=== PATIENT | female | born 1970 | race Caucasian/White ===

== ENCOUNTER 2020-01-04 13:05 | Emergency (ER) | payer BC, SELFPAY ==
[2020-01-04 13:06] VITALS: BP 132/96; PULSE 89; RESP 18; TEMP 36.8; O2SAT 97; BMI 27.3
[2020-01-04] MEDS: Diphth,Pertuss(Acell),Tet Vac 0.5 ML Vial IM (15:21)
--- NOTE | 2020-01-04 15:32 | ED.DCSUM_ITS ---
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 She reports just prior to coming emerge department she was helping move volleyball equipment and the pole caused a laceration to her right foot. She denies any pain. No paresthesias distally. She is unsure when her last tetanus shot was. Physical Examination: Vitals: Stable. Afebrile. General: Well-nourished and well-developed. Head: Normocephalic atraumatic. Neck: Supple, no lymphadenopathy. No JVD. Nontender. Cardiovascular: Regular rate and rhythm. No murmurs. Respiratory: No respiratory distress. Clear to auscultation bilaterally. Abdominal: Soft, nontender, nondistended, normal bowel sounds. No guarding, rebound, or peritoneal signs. Back: Nontender. Extremities: 4 cm laceration to the medial side of her right foot. It this is over the proximal portion of the first metatarsal. There is no soft tissue swelling. There is no tenderness to palpation. She is neuro vas intact distally, no edema. Skin: Normal color, no rash. Neurologic: Alert and oriented ?3. Cranial nerves II through XII are intact. Normal strength and sensation. Psych: Normal affect. Emergency Department Course and Treatment: Patient refused pain medications. She had her wound anesthetized and repaired. She tolerated this well. Her tetanus was updated. Treatment Plan: Patient will be discharged instructions follow-up Dr. foster in 10 to 14 days for suture removal. Return to the emergency department for any worsening symptoms. Disposition: To home in improved and stable condition. Impression: 1 1. Right foot laceration, 4 cm, repaired. Procedure note: Wound was cleansed with chlorhexidine soap. Anesthetized with 1% lidocaine without epinephrine. Copiously irrigated with normal saline. Wound was explored there is no foreign material present. It was closed with 5 simple interrupted 4- 0 ethilon sutures. The patient tolerated it well. This note was generated with [employer] dictation software. It may contain incorrect words, spelling, and punctuation that were not noted in review of the chart prior to signing ED Disposition - Plan for ED Patient: Disposition: Home or Assisted Living Instructions: ED Laceration Ext Sutr Stap Tape Referrals: Justina Foster DO [Primary Care Provider] - 10-14 Days suture removal
[2020-01-04 15:54] VITALS: BP 123/87; PULSE 89; RESP 18; O2SAT 99
== END 2020-01-04 15:55 | disposition home or self-care (01) ==
LOC: ED 14:51
PROVIDERS: Emergency Provider Emergency Medicine; PCP Internal Medicine
DX: S91.311A Laceration without foreign body, right foot, initial encounter (principal); W45.8XXA Other foreign body or object entering through skin, initial encounter; W21.89XA Striking against or struck by other sports equipment, initial encounter; Y93.9 Activity, unspecified; Y92.9 Unspecified place or not applicable; Y99.9 Unspecified external cause status; Z23 Encounter for immunization
CPT/HCPCS: 12002; 90471; 90715; 99283

== ENCOUNTER 2021-04-10 09:49 | Emergency (ER) | payer OTHER, SELFPAY ==
[2021-04-10 09:50] VITALS: BP 122/94; PULSE 78; RESP 18; O2SAT 100
[2021-04-10 09:51] VITALS: BP 136/93; PULSE 97; RESP 20; TEMP 36.7; O2SAT 100; BMI 29.0
--- NOTE | 2021-04-10 10:23 | EKG12_ITS ---
Test Reason : CHEST PAIN Blood Pressure : / mmHG Vent. Rate : 091 BPM Atrial Rate : 091 BPM P-R Int : 114 ms QRS Dur : 086 ms QT Int : 392 ms P-R-T Axes : 021 027 047 degrees QTc Int : 482 ms Normal sinus rhythm Nonspecific ST and T wave abnormality Prolonged QT Abnormal ECG Confirmed by CHRISSIE JONES, SEDA ([id number]), school photograph editor BEN WHITMORE ([id number]) on 04/11/2021 1:47:07 P M Referred By: ALEKSANDAR Confirmed By:KEELY DICKENS MD
--- NOTE | 2021-04-10 10:24 | EX.ED.DYSGE1 ---
HPI History of Present Illness Chief Complaint: Chest Pain Narrative Narrative: Patient presents with what she thinks is high blood pressure at home based on a home reading however she also has these episodes where she feels very anxious and tearful and has some chest discomfort at the time. She has no back pain or tearing sensation she has no pleuritic component. She has no DVT or PE risk factors. No calf pain or leg pain. No fevers chills cough or congestion. This has been happening over the past few days especially in the morning. She does not have a history of hypertension, she does not take any medications. PFSH PFS Medical History no medical history Home Medications paroxetine HCl [Paxil] 10 mg PO DAILY #30 tab 04/10/21 [Rx Last Taken Unknown] Allergy/AdvReac Type Severity Reaction Status Date / Time No Known Allergies Allergy Verified 04/10/21 09:55 Surgical History no surgical history Social History Smoking Status: Never smoker ROS ROS ED ROS Narrative Past medical history: None Medications: None Social history: Noncontributory, non-smoker, she tells me she is under stress with her job but she does not think it is too much out of the ordinary for her. Review of systems: All systems negative except as indicated General: No fever Eyes: No visual changes ENT: No upper airway congestion, normal voice Neck: No neck pain Cardiovascular: Chest discomfort Respiratory: No shortness of breath or cough Gastrointestinal: No abdominal pain, nausea vomiting or diarrhea Genitourinary: No dysuria Musculoskeletal: Denies myalgias no difficulty with ambulation Skin: No rash Neurological: No memory loss, confusion or any focal weakness Psych: Anxious and tearful, she does not want to hurt her self Hematologic: No easy bleeding or easy bruising EXAM Physical Exam Narrative Exam Narrative: Physical exam General: She is slightly tearful but appears in no significant distress otherwise Head: Normocephalic, Atraumatic Eyes: Conjunctiva not pale ENT: Moist mucous membranes Neck: Supple, Nontender, No lymphadenopathy Cardiovascular: Regular rate, Regular rhythm Respiratory: No distress, CTA bilaterally Abdomen: Soft, Nontender, Nondistended Back: Nontender, Normal Inspection. Negative for: CVA tenderness Extremities: Nontender, No edema Skin: Normal color, No rash Neurological: Alert, Normal Strength, Normal Sensation Psychological: Normal affect Const Vital Signs: 04/10/21 09:50 04/10/21 09:51 04/10/21 09:55 Temperature 98.0 F Temperature Source Temporal Pulse Rate 78 97 Respiratory Rate 18 20 H Respiratory Effort Short of Breath Blood Pressure 122/94 H 136/93 H Blood Pressure Mean 103 107 Pulse Ox 100 100 Oxygen Delivery Method Room Air 04/10/21 11:50 Temperature Temperature Source Pulse Rate 71 Respiratory Rate 12 Respiratory Effort Blood Pressure 117/83 H Blood Pressure Mean 94 Pulse Ox 97 Oxygen Delivery Method Room Air MDM MDM MDM Narrative Medical decision making narrative: Patient has a normal emergency department work-up. She appears well I did give her Ativan which improved her symptoms. She apparently has been feeling this for some time, now that I am talking to her . She does have an appointment with her PCP in 3 days but I believe it is reasonable to start her on Paxil since it does have anxiolytic properties also. Anything changes she is to return. Lab Data Labs: Laboratory Results - last 24 hr 04/10/21 04/10/21 10:05 10:05 WBC 8.1 RBC 4.56 Hgb 12.8 Hct 39.2 MCV 86.0 MCH 28.1 MCHC 32.7 RDW Std Deviation 41.0 RDW Coeff of Asmita 13.2 Plt Count 455 H MPV 10.2 Immature Gran % (Auto) 0.200 Neut % (Auto) 64.4 Lymph % (Auto) 29.8 Barbour % (Auto) 4.1 Eos % (Auto) 1.0 Baso % (Auto) 0.5 Absolute Neuts (auto) 5.2 Absolute Lymphs (auto) 2.41 Nucleated RBC % 0 Sodium 140 Potassium 3.8 Chloride 110 H Carbon Dioxide 23.0 Anion Gap 7 BUN 13 Creatinine 0.88 Estim Creat Clear Calc 78.01 Est GFR (MDRD) Af Amer 88 Est GFR (MDRD) Non-Af 73 BUN/Creatinine Ratio 14.8 Glucose 97 Calcium 9.1 Total Bilirubin 0.40 AST 28 ALT 26 Alkaline Phosphatase 88 Troponin I High Sens 3 Total Protein 7.9 Albumin 3.5 Globulin 4.4 H Albumin/Globulin Ratio 0.8 L TSH 1.17 EKG Initial EKG: Comments: Normal sinus rhythm with a rate of 91. Normal CA interval, slightly prolonged QTC at 482. Otherwise nonspecific ST changes throughout no acute changes. Interpreted by emergency doctor. Discharge Plan Triage Chief Complaint: Chest Pain ED Provider: Kyle Matta Dx/Rx/DC Orders Clinical Impression: Chest pain, Anxiety Instructions: ED Anxiety Reaction, ED Chest Pain, Noncardiac Prescriptions: New paroxetine HCl [Paxil] 10 mg tablet 10 mg PO DAILY Qty: 30 RF: 0 Primary Care Provider: Justina Hendrickson Referrals: Justina Hendrickson DO [Primary Care Provider] - 3-5 Days Disposition Disposition: Home, Self Care
[2021-04-10] MEDS: LORazepam 2 MG/ML Syringe 0.5 MG IV (10:41)
[2021-04-10 10:42] LABS: Absolute Lymphocyte Count 2.41 X10^3/uL (0.83-4.51); Absolute Neutrophil Count 5.2 X10^3/uL (2.0-7.7); Basophil# 0.04 X10^3/uL; Basophil% 0.5 % (0-1); Eosinophil# 0.08 X10^3/uL; Hematocrit 39.2 % (37-47); Hemoglobin 12.8 g/dL (12.0-15.0); Lymphocyte # 2.41 X10^3/ul (0.83-4.51); Lymphocyte % 29.8 % (19-41); Mean Corp Hgb Conc 32.7 g/dL (32-36); Mean Corpuscular Hgb 28.1 pg (27.0-32.0); Mean Platelet Vol. 10.2 fl (6.2-12.0); Monocyte# 0.33 X10^3/uL; Monocyte% 4.1 % (0-10); NRBC Flagged by Analyzer 0 % (0-5); Neutrophil # 5.21 X10^3/uL (2.7-7.7); Neutrophil % 64.4 % (47-70); Platelet Count 455 K/mm3 (150-450); RBC Distribution Width CV 13.2 % (11.6-14.6); Red Blood Count 4.56 M/mm3 (4.2-5.4); White Blood Count 8.1 K/mm3 (4.4-11.0)
[2021-04-10 11:09] LABS: ALB/GLOB Ratio 0.8 RATIO (0.9-2.4); AST(SGOT) 28 U/L (15-37); Alanine Aminotransfer ALT/SGPT 26 U/L (13-56); Albumin, Serum 3.5 g/dL (3.2-5.0); Alkaline Phosphatase 88 U/L (45-117); Anion Gap 7 (5-15); BUN 13 mg/dL (7-18); BUN/Creat Ratio 14.8 RATIO (10-20); Calcium,Total 9.1 mg/dL (8.5-10.1); Chloride 110 mmol/L (98-107); Creatinine, Serum 0.88 mg/dL (0.55-1.02); EST Glomerular Filtration Rate 73 mL/min (>60); Est Glom Filt Rate - Afr Amer 88 mL/min (>60); Estimated Creatinine Clearance 78.01 ml/min; Globulin 4.4 g/dL (2.2-4.2); Glucose 97 mg/dL (74-106); Potassium 3.8 mmol/L (3.5-5.1); Protein, Total 7.9 g/dL (6.4-8.2); Sodium Level 140 mmol/L (136-145); Thyroid Stim Hormone (TSH) 1.17 uIU/mL (0.358-3.74); Troponin-I HS 3 pg/mL (3.0-54.0)
[2021-04-10 11:50] VITALS: BP 117/83; PULSE 71; RESP 12; O2SAT 97
== END 2021-04-10 12:50 | disposition home or self-care (01) ==
PROVIDERS: Emergency Provider Emergency Medicine; PCP Internal Medicine
DX: R07.9 Chest pain, unspecified (principal); F41.9 Anxiety disorder, unspecified; R03.0 Elevated blood-pressure reading, without diagnosis of hypertension; Z79.899 Other long term (current) drug therapy
CPT/HCPCS: 80053; 84443; 84484; 85025; 93005; 96361; 96374; 99285; J7040; A4216

== ENCOUNTER → 2024-12-02 | Outpatient (CLI) | payer OTHER, SELFPAY ==
--- NOTE | 2024-12-02 10:56 | VDLE_ITS ---
Reason For Study Reason For Study: Left leg swelling RIGHT LEFT CFV is compressible, spontaneous, phasic, competent GSV is normal. and demonstrates normal augmentation. CFV is compressible, spontaneous, phasic, competent, Procedure and demonstrates normal augmentation. This is a venous duplex using B-mode, color flow and FV is compressible, spontaneous, phasic, competent spectral Doppler. and demonstrates normal augmentation. Exam performed in department. POP V is compressible, spontaneous, phasic, competent A preliminary report was called and/or faxed to and demonstrates normal augmentation. Fast. T/P Trunk is compressible. PTV is compressible. LT PerV is compressible. VL/Venous Duplex US, Unilateral Interpretation Summary Deep veins of the left lower extremity are patent and compressible segmentally. There is no evidence of left lower extremity deep vein thrombosis. Valvular competence appears intact within the p roximal deep venous system on the left . The left great saphenous vein appears patent and compressible segmentally. The right common femoral vein is patent and compressible . Ordering Physician: Justina Hendrickson Referring Physician: Justina Hendrickson Performed By: Chayo Ramirez RVT
--- OUTSIDE RECORDS SUMMARY | 2024-12-02 18:40 | XMS RPT_ITS | CCD ---
Author Organization [facility] Care Team Providers Care Certified Nurse Name Role Phone Fast, Justina A Unavailable Manchak, Bria Unavailable Unavailable Scarlet Smith Unavailable Unavailable Gate Person, System Unavailable Unavailable Danuta Bishop Unavailable Unavailable Fast DO, Justina A Unavailable VogtOra nassar Unavailable Manchak PREPARATOR, Bria Unavailable Unavailable Unavailable Unavailable Fast DO, Justina A Unavailable Fast DO, Justina A Attending Unavailable Fast DO, Justina A Consulting Unavailable Allergies Allergy Classification Reported Allergen(s) Allergy Type Date of Onset Reaction(s) Facility (4 sources) Animal Dander; Translations: [Animal Dander] allergy to substance [facility] Work Phone: Medications Completed/Discontinued Medications Medication Drug Class(es) Dates Sig (Normalized) Sig (Original) acetaminophen 250 mg / aspirin 250 mg / caffeine 65 mg oral tablet (4 sources) Platelet Aggregation Inhibitor, Nonsteroidal Anti-inflammatory Drug, Central Nervous System Stimulant, Methylxanthine EXCEDRIN EXTRA STRENGTH, [id number] (Oral Tablet) 2 tabs prn for 0 days Refills: 0 Ordered: 15-May-2009 Laurel Kohli Active amitriptyline hydrochloride 10 mg oral tablet (4 sources) Tricyclic Antidepressant Start: 04-19-2013 End: 04-19-2013 take 1-2 tablets by mouth once daily at bedtime AMITRIPTYLINE HCL, 10MG (Oral Tablet) 1-2 Tablet qhs / HS for 0 days Quantity: 60 {Tablet} Refills: 3 Ordered: 19-Apr-2013 Fast DO, Justina A Fast DO, Justina A Start : 19-Apr-2013 End : 19-Apr-2013 Discontinued amoxicillin 875 mg / clavulanate 125 mg oral tablet (4 sources) Penicillin-class Antibacterial Start: 06-17-2013 End: 06-27-2013 take 1 tablet by mouth twice daily AUGMENTIN, 875-125MG (Oral Tablet) 1 (one) Tablet bid for 10 days Quantity: 20 {Tablet} Refills: 0 Ordered: 17-Jun-2013 Hayde King DO Start : 17-Jun-2013 End : 27-Jun-2013 Inactive bifidobacterium infantis 4 mg oral capsule (4 sources) Start: 04-19-2013 End: 04-19-2013 take 1 capsule by mouth once daily ALIGN, 4MG (Oral Capsule) 1 Capsule daily for 0 days Quantity: 30 {Capsule} Refills: 0 Ordered: 19-Apr-2013 Fast DO, Justina A Fast DO, Justina A Start : 19-Apr-2013 End : 19-Apr-2013 Discontinued cyclobenzaprine hydrochloride 10 mg oral tablet (4 sources) Muscle Relaxant Start: 04-19-2013 End: 04-12-2021 take 1 tablet by mouth once daily at bedtime as needed Cyclobenzaprine HCl 10 MG Oral Tablet 1 Tablet qhs prn for 0 days Quantity: 30 {Tablet} Refills: 0 Ordered: 12-Apr-2021 Bria Melissa CMA Start : 19-Apr-2013 End : 12-Apr-2021 Inactive Comments: thirty Comment on above: thirty escitalopram 10 mg oral tablet (3 sources) Serotonin Reuptake Inhibitor Start: 08-28-2021 take 1 tablet by mouth once daily at bedtime Escitalopram Oxalate 10 MG Oral Tablet 1 (one) Tablet qd at hs for 0 days Quantity: 30 {Tablet} Refills: 4 Ordered: 28-Aug-2021 Fast DO, Justina A Fast DO, Justina A Start : 28-Aug-2021 Active Start: 06-07-2021 take 1 tablet by fabiana th once daily at bedtime Escitalopram Oxalate 10 MG Oral Tablet 1 (one) Tablet qd at hs for 0 days Quantity: 30 {Tablet} Refills: 3 Ordered: 07-Jun-2021 Fast DO, Justina A Fast DO, Justina A Start : 07-Jun-2021 Active ORTHO TRI-CYCLEN (28), 0.18/0.215/0.25MG-35 MCG (Oral Tablet) (4 sources) Progestin, Estrogen End: 06-17-2013 take 1 tablet by mouth once daily ORTHO TRI-CYCLEN (28), 0.18/0.215/0.25MG-35 MCG (Oral Tablet) 1 tab qd for 0 days Refills: 0 Ordered: 17-Jun-2013 Danuta Bishop LPN End : 17-Jun-2013 Inactive 12 hr fexofenadine hydrochloride 60 mg / pseudoephedrine hydrochloride 120 mg extended release oral tablet (4 sources) alpha-Adrenergic Agonist, Histamine-1 Receptor Antagonist Start: 12-18-2010 End: 10-06-2011 take 60-120 mg by mouth every twelve hours JAZ-D 12 HOUR, 60-120MG (Oral Tablet Extended Release 12 Hour) 1 Tablet ER 12HR q12 hr for 0 days Quantity: 20 {Tablet_ER_12HR} Refills: 0 Ordered: 18-Dec-2010 Start : 18-Dec-2010 End : 06-Oct-2011 Discontinued Comments: This order discontinued per [facility]. Comment on above: This order discontin ued per [facility]. LORazepam 0.5 mg oral tablet (3 sources) Benzodiazepine Start: 08-28-2021 take 1 tablet by mouth twice daily as needed LORazepam 0.5 MG Oral Tablet 1 (one) Tablet bid prn for 0 days Quantity: 25 {Tablet} Refills: 0 Ordered: 28-Aug-2021 Fast DO, Justina A Fast DO, Justina A Start : 28-Aug-2021 Active Start: 04-12-2021 take 1 tablet by fabiana th twice daily as needed LORazepam 0.5 MG Oral Tablet 1 (one) Tablet bid prn for 0 days Quantity: 25 {Tablet} Refills: 0 Ordered: 12-Apr-2021 Fast DO, Justina A Fast DO, Justina A Start : 12-Apr-2021 Active ofloxacin 3 mg/ml ophthalmic solution (4 sources) Quinolone Antimicrobial Start: 05-15-2009 End: 05-22-2009 OCUFLOX, 0.3% (Ophthalmic Solution) 2 (two) Solution q 6 hours for 7 days Refills: 0 Ordered: 15-May-2009 Fast DO, Justina A Fast DO, Justina A Start : 15-May-2009 End : 22-May-2009 Inactive Problems Active Problems Problem Classification Problem Date Documented Da te Episodic/Chronic Anxiety disorders (8 sources) Anxiety; Translations: [Anxiety] 04-17-2021 Chronic Comment on above: discussed routine ex ercise and time for self and side effeccts of meds not stop cold turkey and takes time to take effect Fever of unknown origin (8 sources) Fever with chills; Translations: [Fever chills] 05-15-2015 Episodic Headache; including migraine (16 sources) Headache; Translations: [Headache] Resolved: 08-13-2009 08-13-2009 Episodic Immunizations and screening for infectious disease (11 sources) Need for prophylactic vaccination and inoculation against influenza; Translations: [Needs influenza immunization] 04-12-2021 Episodic Malaise and fatigue (12 sources) Fatigue; Translations: [Fatigue] 06-17-2013 Episodic Neoplasms of unspecified nature or uncertain behavior (3 sources) Thrombocytosis Chronic Neoplasms of unspecified nature or uncertain behavior (7 sources) Neoplasm of uncertain behavior of skin; Translations: [Thrombocytosis] Resolved: 08-13-2009 05-07-2015 Episodic Other gastrointestinal disorders (12 sources) Diarrhea; Translations: [Diarrhea] Resolved: 04-19-2013 04-19-2013 Episodic Comment on above: worsening with eatin g out and then incontinent of stool no pain incontenant of stool Other nutritional; endocrine; and metabolic disorders (3 sources) Body mass index 25-29 - overweight; Translations: [BMI 28.0-28.9,adult] 04-12-2021 Episodic Other screening for suspected conditions (not mental disorders or infectious disease) (3 sources) Patient encounter status; Translations: [Encounter for screening mammogram for breast cancer (Renamed from Encounter for screening mammogram for malignant neoplasm of breast)] 04-12-2021 Episodic Other upper respiratory disease (8 sources) Allergic rhinitis due to other allergen Chronic Other upper respiratory disease (4 sources) Allergic rhinitis; Translations: [Allergic rhinitis due to other allergen] 06-17-2013 Chronic Other upper respiratory disease (4 sources) Pain in throat Episodic Other upper respiratory infections (20 sources) Acute sinusitis; Translations: [Sore throat symptom] Resolved: 04-19-2013 04-19-2013 Episodic Residual codes; unclassified (1 source) Needs influenza immunization; Translations: [Need for prophylactic vaccination and inoculation against influenza] 03-27-2015 Episodic Residual codes; unclassified (8 sources) Family history of diabetes mellitus Episodic Residual codes; unclassified (4 sources) FH: Diabetes mellitus; Translations: [Family history of diabetes mellitus] 07-21-2018 Episodic Residual codes; unclassified (2 sources) H/O: surgery; Translations: [Breast Mass; Local Excision] 06-17-2013 Episodic Residual codes; unclassified (3 sources) Non-smoker; Translations: [Nonsmoker] 04-12-2021 Episodic Spondylosis; intervertebral disc disorders; other back problems (8 sources) Neck pain; Translations: [Neck Pain] 06-17-2013 Episodic Syncope (12 sources) Syncope and collapse; Translations: [Vasovagal syncope] Resolved: 08-13-2009 05-30-2015 Episodic Comment on above: fluids support hose discussed ways to avoid Varicose veins of lower extremity (4 sources) Varicose veins of lower extremity; Translations: [Asymptomatic varicose veins of unspecified lower extremity] 06-04-2015 Episodic Past or Other Problems Problem Classification Problem Date Documented Date Episodic/Chronic Calculus of urinary tract (4 sources) Calcium renal calculus ; Translations: [Calcium kidney stone] Resolved: 04-19-2013 05-09-2015 Episodic Inflammation; infection of eye (except that caused by tuberculosis or sexually transmitteddisease) (4 sources) Serous conjunctivitis; Translations: [Serous conjunctivitis, unspecified laterality] Resolved: 08-13-2009 05-11-2015 Episodic Unclassified (4 sources) Acute Conjuctivitis (372.01) Unclassified (20 sources) Unclassified (4 sources) Deliveries (Parity); Translations: [Deliveries (Parity)] 06-17-2013 Comment on above: 1 Unclassified (12 sources) varicose veins Unclassified (4 sources) Pregnancies (); Translations: [Pregnancies ()] 06-17-2013 Comment on above: 1- twins Unclassified (4 sources) Lesion-Unknown behavior (238.2) Unclassified (3 sources) Nonsmoker Unclassified (3 sources) BMI 28.0-28.9,adult Unclassified (3 sources) Encounter for screening mammogram for breast cancer (Renamed from Encounter for screening mammogram for malignant neoplasm of breast) Results Test Name Value Interpretation Reference Range Facility 12 Lead EKGon 04-10-2021 12 Lead EKG [facility] [address] [place] [address] 12 Lead EKG 04/10/21 0958 MR#: [id number] Acct: [id number] Name: LAUREL ESQUIVEL Rep #: [id number] : 1970 50 From: Amari Cabral MD Attending Dr: Status: DEP ER Ordering Dr: Kyle Matta MD Date: 04/10/21 Location: ED Sex: F C Admitted: Test Reason : CHEST PAIN Blood Pressure : / mmHG Vent. Rate : 091 BPM Atrial Rate : 091 BPM P-R Int : 114 ms QRS Dur : 086 ms QT Int : 392 ms P-R-T Axes : 021 027 047 degrees QTc Int : 482 ms Normal sinus rhythm Nonspecific ST and T wave abnormality Prolonged QT Abnormal ECG Confirmed by CHRISSIE JONES, SEDA ([id number]), business editor BEN WHITMORE ([id number]) on 04/11/2021 1:47:07 PM Referred By: ES Confirmed By:KEELY CABRAL MD 04/11/21 1347 Date Amari Cabral MD CC: Dr. Justina Hendrickson DO; Dr. Kyle Matta MD Signed Normal [facility] CBC W/Diff, Automatedon 10- Absolute Lymph 2.41 X10 3/uL Normal 0.83-4.51 [facility] Comment on above: Performed By: #### L 100.0100, L501.4020, L501.9520, L500.4050 #### [facility] [address] [place], [address] Absolute Neut 5.2 X10 3/uL Normal 2.0-7.7 [facility] Comment on above: Performed By: #### L 100.0100, L501.4020, L501.9520, L500.4050 #### [facility] [address] [place], [address] Basophils/100 WBC (Bld) 0.5 % Normal 0-1 [facility] Comment on above: Performed By: #### L 100.0100, L501.4020, L501.9520, L500.4050 #### [facility] [address] [place], [address] Eosinophils/100 WBC (Bld) 1.0 % Normal 0-5 [facility] Comment on above: Performed By: #### L 100.0100, L501.4020, L501.9520, L500.4050 #### [facility] [address] [place], [address] Erythrocyte distribution width (RBC) [Ratio] 13.2 % Normal 11.6-14.6 [facility] Comment on above: Performed By: #### L 100.0100, L501.4020, L501.9520, L500.4050 #### [facility] [address] [place], [address] Hematocrit (Bld) [Volume fraction] 39.2 % Normal 37-47 [facility] Comment on above: Performed By: #### L 100.0100, L501.4020, L501.9520, L500.4050 #### [facility] [address] [place], [address] Hemoglobin (Bld) [Mass/Vol] 12.8 g/dL Normal 12.0-15.0 [facility] Comment on above: Performed By: #### L 100.0100, L501.4020, L501.9520, L500.4050 #### [facility] [address] [place], [address] IG% 0.200 Normal 0.0-0.9 [facility] Comment on above: Result Comment: IG% - Immature Granulocytes (promyelocytes, myelocytes and metamyelocytes) > 1% indicates that a LEFT SHIFT is Present. Performed By: #### L 100.0100, L501.4020, L501.9520, L500.4050 #### [facility] [address] [place], [address] Lymphocytes/100 WBC (Bld) 29.8 % Normal 19-41 [facility] Comment on above: Performed By: #### L 100.0100, L501.4020, L501.9520, L500.4050 #### [facility] [address] [place], [address] MCH (RBC) [Entitic mass] 28.1 pg Normal 27.0-32.0 [facility] Comment on above: Performed By: #### L 100.0100, L501.4020, L501.9520, L500.4050 #### [facility] [address] [place], [address] MCHC (RBC) [Mass/Vol] 32.7 g/dL Normal 32-36 [facility] Comment on above: Performed By: #### L 100.0100, L501.4020, L501.9520, L500.4050 #### [facility] [address] [place], [address] MCV (RBC) [Entitic vol] 86.0 fL Normal 81-99 [facility] Comment on above: Performed By: #### L 100.0100, L501.4020, L501.9520, L500.4050 #### [facility] [address] [place], [address] Monocytes/100 WBC (Bld) 4.1 % Normal 0-10 [facility] Comment on above: Performed By: #### L 100.0100, L501.4020, L501.9520, L500.4050 #### [facility] [address] [place], [address] Neutrophils/100 WBC (Bld) 64.4 % Normal 47-70 [facility] Comment on above: Performed By: #### L 100.0100, L501.4020, L501.9520, L500.4050 #### [facility] [address] [place], [address] Nucleated RBC (Bld) [#/Vol] 0 10*3/uL Normal 0-5 [facility] Comment on above: Performed By: #### L 100.0100, L501.4020, L501.9520, L500.4050 #### [facility] [address] [place], [address] Platelet mean volume (Bld) [Entitic vol] 10.2 fL Normal 6.2-12.0 [facility] Comment on above: Performed By: #### L 100.0100, L501.4020, L501.9520, L500.4050 #### [facility] [address] [place], [address] Platelets (Bld) [#/Vol] 455 10*3/uL High 150-450 [facility] Comment on above: Performed By: #### L 100.0100, L501.4020, L501.9520, L500.4050 #### [facility] [address] [place], [address] RBC (Bld) [#/Vol] 4.56 10*6/uL Normal 4.2-5.4 [facility] Comment on above: Performed By: #### L 100.0100, L501.4020, L501.9520, L500.4050 #### [facility] [address] [place], [address] RDW SD 41.0 fl Normal 35.1-43.9 [facility] Comment on above: Performed By: #### L 100.0100, L501.4020, L501.9520, L500.4050 #### [facility] [address] [place], [address] WBC (Bld) [#/Vol] 8.1 10*3/uL Normal 4.4-11.0 [facility] Comment on above: Performed By: #### L 100.0100, L501.4020, L501.9520, L500.4050 #### [facility] [address] [place], [address] Comprehensive Metabolic Prof ilon 04-10-2021 Albumin [Mass/Vol] 3.5 g/dL Normal 3.2-5.0 [facility] Comment on above: Performed By: #### L 100.0100, L501.4020, L501.9520, L500.4050 #### [facility] [address] [place], [address] Albumin/Globulin [Mass ratio] 0.8 {ratio} Low 0.9-2.4 [facility] Comment on above: Performed By: #### L 100.0100, L501.4020, L501.9520, L500.4050 #### [facility] [address] [place], [address] ALK P 88 U/L Normal 45-117 [facility] Comment on above: Performed By: #### L 100.0100, L501.4020, L501.9520, L500.4050 #### [facility] [address] [place], [address] ALT [Catalytic activity/Vol] 26 U/L Normal 13-56 [facility] Comment on above: Performed By: #### L 100.0100, L501.4020, L501.9520, L500.4050 #### [facility] [address] [place], [address] AST [Catalytic activity/Vol] 28 U/L Normal 15-37 [facility] Comment on above: Result Comment: Mode rate Hemolysis, Result may be falsely increased. Performed By: #### L 100.0100, L501.4020, L501.9520, L500.4050 #### [facility] [address] [place], [address] Bilirubin [Mass/Vol] 0.40 mg/dL Normal 0.20-1.00 [facility] Comment on above: Result Comment: For patients on eltrombopag therapy, use of Dimension [place] TBIL is not recommended. Performed By: #### L 100.0100, L501.4020, L501.9520, L500.4050 #### [facility] [address] [place], [address] BUN/CRE 14.8 RATIO Normal 10-20 [facility] Comment on above: Performed By: #### L 100.0100, L501.4020, L501.9520, L500.4050 #### [facility] [address] [place], [address] CA,Total 9.1 mg/dL Normal 8.5-10.1 [facility] Comment on above: Performed By: #### L 100.0100, L501.4020, L501.9520, L500.4050 #### [facility] [address] [place], [address] Chloride [Moles/Vol] 110 mmol/L High 98-107 [facility] Comment on above: Performed By: #### L 100.0100, L501.4020, L501.9520, L500.4050 #### [facility] [address] [place], [address] CO2 [Moles/Vol] 23.0 mmol/L Normal 21.0-32.0 [facility] Comment on above: Performed By: #### L 100.0100, L501.4020, L501.9520, L500.4050 #### [facility] [address] [place], [address] Creatinine [Mass/Vol] 0.88 mg/dL Normal 0.55-1.02 [facility] Comment on above: Result Comment: The validity of the calculated GFR GFRAA in patients over 70 years has not been determined. Clinical correlation is essential. Performed By: #### L 100.0100, L501.4020, L501.9520, L500.4050 #### [facility] [address] [place], [address] ECRCL 78.01 ml/min Normal [facility] Comment on above: Performed By: #### L 100.0100, L501.4020, L501.9520, L500.4050 #### [facility] [address] [place], [address] EST GFR - AA 88 mL/min Normal >60 [facility] Comment on above: Result Comment: Afri can Ghanaian GFR Calc Performed By: #### L 100.0100, L501.4020, L501.9520, L500.4050 #### [facility] [address] [place], [address] GAP 7 Normal 5-15 [facility] Comment on above: Performed By: #### L 100.0100, L501.4020, L501.9520, L500.4050 #### [facility] [address] [place], [address] GFR/1.73 sq M.predicted among non-blacks MDRD (S/P/Bld) [Vol rate/Area] 73 mL/min/{1.73_m2} Normal >60 [facility] Comment on above: Result Comment: Non- GFR Calc Performed By: #### L 100.0100, L501.4020, L501.9520, L500.4050 #### [facility] [address] [place], [address] Globulin (S) [Mass/Vol] 4.4 g/dL High 2.2-4.2 [facility] Comment on above: Performed By: #### L 100.0100, L501.4020, L501.9520, L500.4050 #### [facility] [address] [place], [address] Glucose [Mass/Vol] 97 mg/dL Normal 74-106 [facility] Comment on above: Result Comment: Renetta morgan note revised GLUCOSE reference range effective 2017. Performed By: #### L 100.0100, L501.4020, L501.9520, L500.4050 #### [facility] [address] [place], [address] Potassium [Moles/Vol] 3.8 mmol/L Normal 3.5-5.1 [facility] Comment on above: Result Comment: Mode rate Hemolysis, Result may be falsely increased. Performed By: #### L 100.0100, L501.4020, L501.9520, L500.4050 #### [facility] [address] [place], [address] Sodium [Moles/Vol] 140 mmol/L Normal 136-145 [facility] Comment on above: Performed By: #### L 100.0100, L501.4020, L501.9520, L500.4050 #### [facility] [address] [place], [address] T PROT 7.9 g/dL Normal 6.4-8.2 [facility] Comment on above: Performed By: #### L 100.0100, L501.4020, L501.9520, L500.4050 #### [facility] [address] [place], [address] Urea nitrogen [Mass/Vol] 13 mg/dL Normal 7-18 [facility] Comment on above: Performed By: #### L 100.0100, L501.4020, L501.9525, L500.4050 #### [facility] [address] [place], [address] Emergency Department Summary on 04-10-2021 Emergency Department Summary [facility] Medical Records Department [address] [place] [address] Emergency Department Summary 04/10/21 MR#: [id number] Acct: [id number] Name: LAUREL ESQUIVEL Rep #: [id number] : 1970 50 From: Kyle Matta MD PCP: Dr. Justina Hendrickson, DO Status:REG ER Location: ED HPI History of Present Illness Chief Complaint: Chest Pain Narrative Narrative: Patient presents with what she thinks is high blood pressure at home based on a home reading however she also has these episodes where she feels very anxious and tearful and has some chest discomfort at the time. She has no back pain or tearing sensation she has no pleuritic component. She has no DVT or PE risk factors. No calf pain or leg pain. No fevers chills cough or congestion. This has been happening over the past few days especially in the morning. She does not have a history of hypertension, she does not take any medications. PFSH PFSH Medical History no medical history Home Medications paroxetine HCl [Paxil] 10 mg PO DAILY #30 tab 04/10/21 [Rx Last Taken Unknown] Allergy/AdvReac Type Severity Reaction Status Date / Time No Known Allergies Allergy Verified 04/10/21 09:55 Surgical History no surgical history Social History Smoking Status: Never smoker ROS ROS ED ROS Narrative Past medical history: None Medications: None Social history: Noncontributory, non-smoker, she tells me she is under stress with her job but she does not think it is too much out of the ordinary for her. Review of systems: All systems negative except as indicated General: No fever Eyes: No visual changes ENT: No upper airway congestion, normal voice Neck: No neck pain Cardiovascular: Chest discomfort Respiratory: No shortness of breath or cough Gastrointestinal: No abdominal pain, nausea vomiting or diarrhea Genitourinary: No dysuria Musculoskeletal: Denies myalgias no difficulty with ambulation Skin: No rash Neurological: No memory loss, confusion or any focal weakness Psych: Anxious and tearful, she does not want to hurt her self Hematologic: No easy bleeding or easy bruising EXAM Physical Exam Narrative Exam Narrative: Physical exam General: She is slightly tearful but appears in no significant distress otherwise Head: Normocephalic, Atraumatic Eyes: Conjunctiva not pale ENT: Moist mucous membranes Neck: Supple, Nontender, No lymphadenopathy Cardiovascular: Regular rate, Regular rhythm Respiratory: No distress, CTA bilaterally Abdomen: Soft, Nontender, Nondistended Back: Nontender, Normal Inspection. Negative for: CVA tenderness Extremities: Nontender, No edema Skin: Normal color, No rash Neurological: Alert, Normal Strength, Normal Sensation Psychological: Normal affect Const Vital Signs: 04/10/21 09:50 04/10/21 09:51 04/10/21 09:55 Temperature 98.0 F Temperature Source Temporal Pulse Rate 78 97 Respiratory Rate 18 20 H Respiratory Effort Short of Breath Blood Pressure 122/94 H 136/93 H Blood Pressure Mean 103 107 Pulse Ox 100 100 Oxygen Delivery Method Room Air 04/10/21 11:50 Temperature Temperature Source Pulse Rate 71 Respiratory Rate 12 Respiratory Effort Blood Pressure 117/83 H Blood Pressure Mean 94 Pulse Ox 97 Oxygen Delivery Method Room Air MDM MDM MDM Narrative Medical decision making narrative: Patient has a normal emergency department work-up. She appears well I did give her Ativan which improved her symptoms. She apparently has been feeling this for some time, now that I am talking to her . She does have an appointment with her PCP in 3 days but I believe it is reasonable to start her on Paxil since it does have anxiolytic properties also. Anything changes she is to return. Lab Data Labs: Laboratory Results - last 24 hr 04/10/21 04/10/21 10:05 10:05 WBC 8.1 RBC 4.56 Hgb 12.8 Hct 39.2 MCV 86.0 MCH 28.1 MCHC 32.7 RDW Std Deviation 41.0 RDW Coeff of Asmita 13.2 Plt Count 455 H MPV 10.2 Immature Gran % (Auto) 0.200 Neut % (Auto) 64.4 Lymph % (Auto) 29.8 [place] % (Auto) 4.1 Eos % (Auto) 1.0 Baso % (Auto) 0.5 Absolute Neuts (auto) 5.2 Absolute Lymphs (auto) 2.41 Nucleated RBC % 0 Sodium 140 Potassium 3.8 Chloride 110 H Carbon Dioxide 23.0 Anion Gap 7 BUN 13 Creatinine 0.88 Estim Creat Clear Calc 78.01 Est GFR (MDRD) Af Amer 88 Est GFR (MDRD) Non-Af 73 BUN/Creatinine Ratio 14.8 Glucose 97 Calcium 9.1 Total Bilirubin 0.40 AST 28 ALT 26 Alkaline Phosphatase 88 Troponin I High Sens 3 Total Protein 7.9 Albumin 3.5 Globulin 4.4 H Albumin/Globulin Ratio 0.8 L TSH 1.17 (more content not included)... Normal [facility] L501.4020on 04-10-2021 TROPONIN-I HS 3 pg/mL Normal 3.0-54.0 [facility] Comment on above: Result Comment: Renetta morgan Note: New Test Units and Gender Specific Reference Ranges. For more information see Policy Stat Procedure [place] High Sensitivity Troponin (TNIH) and attachments. Performed By: #### L 100.0100, L501.4020, L501.9520, L500.4050 #### [facility] [address] [place], [place], [id number] Thyroid Stim Hormone (TSH)on 04-10-2021 TSH 1.17 uIU/mL Normal 0.358-3.74 [facility] Comment on above: Performed By: #### L 100.0100, L501.4020, L501.9520, L500.4050 #### [facility] [address] [place], [place], [address] CNOVon 08-01-2019 CNOV Office Visit ([facility] ) LAUREL ESQUIVEL ([id number]) 1970 F Date Time Provider Department 08/01/19 1:15 PM TYSON AZUL (WESLY) [facility] During your visit today, we recorded the following information about you: Temperature Pulse Respiration Blood pressure 97.1 degrees 81/minute 16/minute 112/78 Weight 86 kg Tyson Azul PA-C 08/01/2019 3:55 PM Signed Subjective HPI Patient presents with nasal congestion, hoarse voice over the past 4 days. She's not had a cough. No fever. She's had some sinus pressure as well. She has used Sudafed and NyQuil. Denies headaches or chills. She did not get a flu shot this season. No vomiting or diarrhea. No abdominal pain. Review of Systems Constitutional: Negative. HENT: Positive for congestion, sinus pain and sore throat. Negative for ear pain. Eyes: Negative. Respiratory: Negative for cough. Cardiovascular: Negative. Gastrointestinal: Negative. Genitourinary: Negative. Skin: Negative. All other systems reviewed and are negative. History reviewed. No pertinent past medical history. Current Outpatient Medications Medication Sig Dispense Refill - albuterol HFA (VENTOLIN HFA) 90 mcg/actuation inhaler Inhale 2 Puffs as instructed every 4 hours as needed for Wheezing/Shortness of Breath. (Patient not taking: Reported on 08/01/2019 ) 1 Inhaler 0 - codeine-guaiFENesin (ROBITUSSIN AC) 10-100 mg/5 mL syrup Take 5-10 mL by mouth four times daily as needed for Cough. May cause drowsiness. (Patient not taking: Reported on 08/01/2019) 120 mL 0 No current facility-administered medications for this visit. No past surgical history on file. No family history on file. Social History Tobacco Use - Smoking status: Never Smoker - Smokeless tobacco: Never Used Substance Use Topics - Alcohol use: Not on file - Drug use: Not on file BP 112/78 Pulse 81 Temp 36.2 ?C (97.1 ?F) (Tympanic) Resp 16 Wt 86 kg (189 lb 9.6 oz) SpO2 97% Objective Physical Exam Constitutional: She is oriented to person, place, and time and well-developed, well-nourished, and in no distress. HENT: Head: Normocephalic and atraumatic. Right Ear: Tympanic membrane, external ear and ear canal normal. Left Ear: Tympanic membrane, external ear and ear canal normal. Nose: Mucosal edema and rhinorrhea present. Mouth/Throat: Uvula is midline, oropharynx is clear and moist and mucous membranes are normal. Hoarse voice Neck: Normal range of motion. Neck supple. Cardiovascular: Normal rate, regular rhythm and normal heart sounds. Pulmonary/Chest: Effort normal and breath sounds normal. No respiratory distress. She has no wheezes. She has no rales. Neurological: She is alert and oriented to person, place, and time. Skin: Skin is warm and dry. No rash noted. Psychiatric: Affect and judgment normal. Nursing note and vitals reviewed. ASSESSMENT/PLAN: 1. Viral URI with cough - ICD9: 465.9, ICD10: J06.9, B97.89 - Discussed viral etiology and rationale for treatment. - Symptomatic treatment with prn analgesia - Supportive care with fluids and rest - Follow up in one week if symptoms persist or sooner if worsening of symptoms Tyson Azul PA-C Referring Provider: SELF [200] Allergies As of Date: 08/01/2019 (No Known Allergies) Date Reviewed: 08/01/2019 Reviewed by: Shala Hernadez LPN - Fully Assessed Reason for Visit: sinus congestion [Other] Cmt: x 4 days Primary Visit Diagnosis:Viral URI with cough [J06.9, B97.89] Prescriptions as of 08/01/2019 Sig: ALBUTEROL SULFATE HFA 90 MCG/* Inhale 2 Puffs as instructed * Patient not taking: Reported on 08/01/2019 CODEINE 10 MG-GUAIFENESIN 100* Take 5-10 mL by mouth four ti* Patient not taking: Reported on 08/01/2019 Problem List As Of Date: 08/01/2019 (None) Encounter Status:Closed by TYSON AZUL PA-C on 08/01/19 Normal [facility] PROGRESSon 08-01-2019 PROGRESS HNO ID: [id number] Author: Tyson Azul (Pa) Service: ? Author Type: Physician Coordinator Volunteer Services Type: Progress Notes Filed: 08/01/2019 3:55 PM Note Text: Subjective HPI Patient presents with nasal congestion, hoarse voice over the past 4 days. She's not had a cough. No fever. She's had some sinus pressure as well. She has used Sudafed and NyQuil. Denies headaches or chills. She did not get a flu shot this season. No vomiting or diarrhea. No abdominal pain. Review of Systems Constitutional: Negative. HENT: Positive for congestion, sinus pain and sore throat. Negative for ear pain. Eyes: Negative. Respiratory: Negative for cough. Cardiovascular: Negative. Gastrointestinal: Negative. Genitourinary: Negative. Skin: Negative. All other systems reviewed and are negative. History reviewed. No pertinent past medical history. Current Outpatient Medications Medication Sig Dispense Refill - albuterol HFA (VENTOLIN HFA) 90 mcg/actuation inhaler Inhale 2 Puffs as instructed every 4 hours as needed for Wheezing/Shortness of Breath. (Patient not taking: Reported on 08/01/2019 ) 1 Inhaler 0 - codeine-guaiFENesin (ROBITUSSIN AC) 10-100 mg/5 mL syrup Take 5-10 mL by mouth four times daily as needed for Cough. May cause drowsiness. (Patient not taking: Reported on 08/01/2019) 120 mL 0 No current facility-administered medications for this visit. No past surgical history on file. No family history on file. Social History Tobacco Use - Smoking status: Never Smoker - Smokeless tobacco: Never Used Substance Use Topics - Alcohol use: Not on file - Drug use: Not on file BP 112/78 Pulse 81 Temp 36.2 ?C (97.1 ?F) (Tympanic) Resp 16 Wt 86 kg (189 lb 9.6 oz) SpO2 97% Objective Physical Exam Constitutional: She is oriented to person, place, and time and well-developed, well-nourished, and in no distress. HENT: Head: Normocephalic and atraumatic. Right Ear: Tympanic membrane, external ear and ear canal normal. Left Ear: Tympanic membrane, external ear and ear canal normal. Nose: Mucosal edema and rhinorrhea present. Mouth/Throat: Uvula is midline, oropharynx is clear and moist and mucous membranes are normal. Hoarse voice Neck: Normal range of motion. Neck supple. Cardiovascular: Normal rate, regular rhythm and normal heart sounds. Pulmonary/Chest: Effort normal and breath sounds normal. No respiratory distress. She has no wheezes. She has no rales. Neurological: She is alert and oriented to person, place, and time. Skin: Skin is warm and dry. No rash noted. Psychiatric: Affect and judgment normal. Nursing note and vitals reviewed. ASSESSMENT/PLAN: 1. Viral URI with cough - ICD9: 465.9, ICD10: J06.9, B97.89 - Discussed viral etiology and rationale for treatment. - Symptomatic treatment with prn analgesia - Supportive care with fluids and rest - Follow up in one week if symptoms persist or sooner if worsening of symptoms Tyson Azul PA-C Normal [facility] REGINALDO CULTURE-OTHER ([id number])Ord ered By: Skidder Runner on 06-17-2013 Bacteria identified Respiratory culture Nom (Unsp spec) Final report Normal [facility] Work Phone: Comment on above: PATIENT NOT FASTINGP ERFORMED BY: [employer] [facility] [id number] Information: SRC:AMADEO [id number] Bacteria identified Respiratory culture Nom (Unsp spec) BETAGA Normal [facility] Work Phone: Comment on above: Beta hemolytic Strep tococcus, group AModerate growthPenicillin and ampicillin are drugs of choice for treatment ofbeta-hemolytic streptococcal infections. Susceptibility testing ofpenicillins and other beta-lactam agents approved by the FDA fortreatment of beta-hemolytic streptococcal infections need not beperformed routinely because nonsusceptible isolates are extremelyrare in any beta-hemolytic streptococcus and have not been reportedfor Streptococcus pyogenes (group A). (CLSI 2011)Routine respiratory floraHeavy growth PATIENT NOT FASTINGP ERFORMED BY: [facility] Vzhnrs2055 Morel Woodall Nicholson GroupAt[facility] [id number] Information: SRC:THRT I98804 Rapid Flu (78515 x 2)Ordered By: Danuta Bishop on 06-17-2013 FLUAV Ag IA Ql (Throat) Negative Normal [facility] Work Phone: FLUAV Ag IA Ql (Throat) Negative Normal [facility]; [facility] Work Phone: Rapid Strep Test, Office ([phone])Ordered By: Danuta Bishop on 06-17-2013 S. pyogenes Ag EIA Ql (Throat) Negative Normal [facility]; [facility] Work Phone: S. pyogenes Ag IA Ql (Unsp spec) Negative Normal [facility] Work Phone: C difficile Toxins A+B, EIAO rdered By: Skidder Runner on 10-14-2011 C. difficile toxin A+B IA Ql (St) Negative Normal [facility] Work Phone: Comment on above: PERFORMED BY: [facility] [id number] BY: [facility] [id number] H. pylori Stool Ag, EIAOrder ed By: Skidder Runner on 10-14-2011 H. pylori Ag IA Ql (St) Negative Normal [facility] Work Phone: Comment on above: PERFORMED BY: [facility] [id number] BY: [facility] [id number] Occult Blood, Fecal, IAOrder ed By: Skidder Runner on 10-14-2011 Lower GI hemoglobin IA Ql (St) Negative Normal [facility] Work Phone: Comment on above: PERFORMED BY: [facility] [id number] BY: [employer] [address] [id number] Ova + Parasite ExamOrdered B y: Skidder Runner on 10-14-2011 Ova and parasites identified Concentration Nom (St) NOCP Normal [facility] Work Phone: Comment on above: No ova, cysts, or pa rasites seen. PERFORMED BY: [facility] [id number] BY: [facility] [id number] Ova and parasites identified LM Nom (Unsp spec) Final report Normal [facility] Work Phone: Comment on above: These results were o btained using wet preparation(s) and trichromestained smear. This test does not include testing for Cryptosporidiumparvum, Cyclospora, or Microsporidia. PERFORMED BY: [facility] [id number] BY: [place] [id number] Stool CultureOrdered By: Shivani tem Gate Person on 10-14-2011 Bacteria identified Cx Nom (Unsp spec) NSS Normal [facility] Work Phone: Comment on above: No Salmonella or Barbara gella recovered. PERFORMED BY: [facility] hospital [id number] BY: [address] [id number] Information: SRC:ST Bacteria identified Cx Nom (Unsp spec) NCI Normal [facility] Work Phone: Comment on above: No Campylobacter spe cies isolated. PERFORMED BY: [facility]Critical [facility] hospital [id number] BY: [address] [id number] Information: SRC:ST Campylobacter sp identified Org specific cx Nom (St) Final report Normal [facility] Work Phone: Comment on above: PERFORMED BY: [employer] WellA[facility] SystemsCritical access hospital [id number] BY: [address] [id number] Information: SRC:ST E. coli shiga-like toxin IA Ql (St) Negative Normal [facility] Work Phone: Comment on above: PERFORMED BY: [facility] hospital [id number] BY: [address] [id number] Information: SRC:ST Salmonella and Shigella sp identified Org specific cx Nom (St) Final report Normal Comprehensi ve [facility] Medicine Work Phone: Comment on above: PERFORMED BY: [facility] [id number] BY: [facility] [id number] Information: SRC:ST White Blood Cells (WBC), Sto olOrdered By: Skidder Runner on 10-14-2011 WBC LM Ql (St) Final report Normal Comprehe nsive [facility] Medicine Work Phone: Comment on above: Reference Range: Non e Seen PERFORMED BY: [facility] [id number] BY: [employer] [id number] WBC LM Ql (St) NWBC Normal Comprehens [facility]lio [facility] Work Phone: Comment on above: No white blood cells seen. PERFORMED BY: [facility] [id number] BY: [employer] [id number] CBC With Differential/Platel etOrdered By: Skidder Runner on 10-06-2011 Basophils #/vol (Bld) 0.0 {x10E3/uL} Normal 0.0-0.2 [facility] Work Phone: Comment on above: PERFORMED BY: [facility] [id number] Basophils/100 WBC (Bld) 1 % Normal 0-3 [facility] Work Phone: Comment on above: PERFORMED BY: [facility] [id number] Eosinophils #/vol (Bld) 0.0 {x10E3/uL} Normal 0.0-0.4 [facility] Work Phone: Comment on above: PERFORMED BY: [facility] [id number] Eosinophils/100 WBC (Bld) 1 % Normal 0-7 [facility] Work Phone: Comment on above: PERFORMED BY: [employer] [facility] [id number] Erythrocyte distribution width Ratio (RBC) 13.1 % Normal 11.7-15.0 [facility] Work Phone: Comment on above: PERFORMED BY: [employer] [facility] [id number] Hematocrit Volume Fraction (Bld) 40.1 % Normal 34.0-44.0 [facility] Work Phone: Comment on above: PERFORMED BY: [employer] [facility] [id number] Hemoglobin mass conc (Bld) 13.3 g/dL Normal 11.5-15.0 [facility] Work Phone: Comment on above: PERFORMED BY: [employer] [facility] [id number] Immature granulocytes #/vol (Bld) 0.0 {x10E3/uL} Normal 0.0-0.1 [facility] Work Phone: Comment on above: PERFORMED BY: [employer] [facility] [id number] Immature granulocytes/100 WBC (Bld) 0 % Normal 0-2 [facility] Work Phone: Comment on above: PERFORMED BY: [employer] [facility] [id number] Lymphocytes #/vol (Bld) 2.5 {x10E3/uL} Normal 0.7-4.5 [facility] Work Phone: Comment on above: PERFORMED BY: [employer] [facility] [id number] Lymphocytes/100 WBC (Bld) 30 % Normal 14-46 [facility] Work Phone: Comment on above: PERFORMED BY: [employer] [facility] [id number] MCH Entitic mass (RBC) 28.2 pg Normal 27.0-34.0 [facility] Work Phone: Comment on above: PERFORMED BY: [employer] [facility] [facility] [id number] MCHC mass conc (RBC) 33.2 g/dL Normal 32.0-36.0 [facility] Internal Medicine Work Phone: Comment on above: PERFORMED BY: [employer] [facility] [id number] MCV Entitic volume (RBC) 85 fL Normal 80-98 [facility] Work Phone: Comment on above: PERFORMED BY: [employer] [facility] [id number] Monocytes #/vol (Bld) 0.4 {x10E3/uL} Normal 0.1-1.0 [facility] Work Phone: Comment on above: PERFORMED BY: [employer] [facility] [id number] Monocytes/100 WBC (Bld) 5 % Normal 4-13 [facility] Internal Medicine Work Phone: Comment on above: PERFORMED BY: [employer] [facility] [facility] [id number] Neutrophils #/vol (Bld) 5.3 {x10E3/uL} Normal 1.8-7.8 [facility] Work Phone: Comment on above: PERFORMED BY: [employer] [facility] [facility] [id number] Neutrophils/100 WBC (Bld) 63 % Normal 40-74 [facility] Work Phone: Comment on above: PERFORMED BY: [facility]Critical [facility] hospital [id number] Platelets #/vol (Bld) 302 {x10E3/uL} Normal 140-415 [facility] Work Phone: Comment on above: PERFORMED BY: [employer]uu On[employer]ine [facility] [id number] RBC #/vol (Bld) 4.72 {x10E6/uL} Normal 3.80-5.10 [facility] Work Phone: Comment on above: PERFORMED BY: [employer]6370 [facility] [id number] WBC #/vol (Bld) 8.2 {x10E3/uL} Normal 4.0-10.[address] [facility] Internal [facility] Work Phone: Comment on above: PERFORMED BY: [employer] [facility] [id number] Celiac Disease Comprehensive Ordered By: Skidder Runner on 10-06-2011 Endomysium IgA Ql (S) Negative Normal Com [facility] Internal Medicine Work Phone: Comment on above: PERFORMED BY: [employer] [facility] [id number] Gliadin peptide IgA Qn (S) 9 {units} Normal 0-19 [facility] Work Phone: Comment on above: Negative 0 - 19 Weak Positive 20 - 30 Moderate to Strong Positive >30 PERFORMED BY: [employer] [facility] [id number] Gliadin peptide IgG Qn (S) 11 {units} Normal 0-19 [facility] Work Phone: Comment on above: Negative 0 - 19 Weak Positive 20 - 30 Moderate to Strong Positive >30 PERFORMED BY: [employer] [facility] [id number] IgA mass conc 353 mg/dL Normal 70-400 Comprehensi [facility] Medicine Work Phone: Comment on above: PERFORMED BY: [employer] [facility] [id number] Tissue transglutaminase IgA Qn (S) <2 Normal 0-3 [facility] Work Phone: Comment on above: Negative 0 - 3 Weak Positive 4 - 10 Positive >10 . Tissue Transglutaminase (tTG) has been identified as the endomysial antigen. Studies have demonstr- ated that endomysial IgA antibodies have over 99% specificity for gluten sensitive enteropathy. PERFORMED BY: [employer] [place] [id number] Tissue transglutaminase IgG Qn (S) 2 U/mL Normal 0-5 [facility] Internal Medicine Work Phone: Comment on above: Negative 0 - 5 Weak Positive 6 - 9 Positive >9 PERFORMED BY: [facility] [id number] Comp. Metabolic Panel (14)Or dered By: Skidder Runner on 10-06-2011 Albumin mass conc 4.1 g/dL Normal 3.5-5.5 [facility] Internal Medicine Work Phone: Comment on above: PERFORMED BY: [facility] [id number] Albumin/Globulin mass ratio 1.4 {ratio} Normal 1.1-2.5 [facility] Internal Medicine Work Phone: Comment on above: PERFORMED BY: [employer] [facility] [id number] ALP enzyme act/vol 74 [iU]/L Normal 25-150 [facility] Internal Medicine Work Phone: Comment on above: PERFORMED BY: [facility] [id number] ALT enzyme act/vol 13 [iU]/L Normal 0-40 [facility] Work Phone: Comment on above: PERFORMED BY: [employer] [facility] [id number] AST enzyme act/vol 13 [iU]/L Normal 0-40 [facility] Work Phone: Comment on above: PERFORMED BY: [facility] [id number] Bilirubin mass conc 0.3 mg/dL Normal 0.0-1.[address] [facility] Internal Medicine Work Phone: Comment on above: PERFORMED BY: [facility] [id number] Calcium mass conc 9.5 mg/dL Normal 8.7-10.2 Compreh ensive Internal Medicine Work Phone: Comment on above: PERFORMED BY: [employer]6370 [facility] [id number] Chloride molar conc 105 mmol/L Normal 97-108 Compr ehensive Internal Medicine Work Phone: Comment on above: PERFORMED BY: [employer]70 [facility] [id number] CO2 molar conc 22 mmol/L Normal 20-32 Comprehens [facility] Work Phone: Comment on above: PERFORMED BY: [employer] [facility] [id number] Creatinine mass conc 0.73 mg/dL Normal 0.57-1.00 Comp rehensive Internal Medicine Work Phone: Comment on above: PERFORMED BY: [employer]70 [facility] [id number] GFR/1.73 sq M predicted among blacks MDRD vol rate/area (S/P/Bld) 119 mL/min/{1.73_m2} Normal Compreh ensive Internal Medicine Work Phone: Comment on above: Note: A persistent e GFR <60 mL/min/1.73 m2 (3 months or more) mayindicate chronic kidney disease. An eGFR >59 mL/min/1.73 m2 with anelevated urine protein also may indicate chronic kidney disease.Calculated using CKD-EPI formula. PERFORMED BY: [employer]aya [id number] [facility] PartnersAt[facility] [id number] GFR/1.73 sq M predicted among non-blacks CKD-EPI vol rate/area (S/P/Bld) 103 mL/min/1.73 Normal [facility] Work Phone: Comment on above: PERFORMED BY: Amaya [id number] [facility] [facility] [id number] Globulin mass conc (S) 3.0 g/dL Normal 1.5-4.5 Co m[facility] Work Phone: Comment on above: PERFORMED BY: Amaya [id number] Morel Woodall Nicholson GroupAt[facility] [id number] Glucose mass conc 90 mg/dL Normal 65-99 Compreh ensive [facility] Work Phone: Comment on above: PERFORMED BY: Amaya [id number] [facility] [facility] [id number] Potassium molar conc 4.5 mmol/L Normal 3.5-5.2 Comp rehensive Internal Medicine Work Phone: Comment on above: PERFORMED BY: Visto70 [facility] [facility]At[facility] [id number] Protein mass conc 7.1 g/dL Normal 6.0-8.5 Compreh ensive [facility] Medicine Work Phone: Comment on above: PERFORMED BY: Visto70 [facility] [id number] Sodium molar conc 137 mmol/L Normal 134-144 Compreh ensive [facility] Work Phone: Comment on above: PERFORMED BY: Visto70 [facility] [facility]At[facility] [id number] Urea nitrogen mass conc 10 mg/dL Normal 6-24 C omprehensive [facility] Work Phone: Comment on above: PERFORMED BY: Visto70 [facility] [facility] [id number] Urea nitrogen/Creatinine mass ratio 14 mg/mg Normal 9-23 [facility] Work Phone: Comment on above: PERFORMED BY: Visto70 MorelMolecular ImagingAt[facility] Health [facility] [id number] H pylori, IgM, IgG, IgA AbOr dered By: Skidder Runner on 10-06-2011 H. pylori IgG IA Qn (S) {index_val} Normal 0.0-0.8 [facility] Work Phone: Comment on above: Negative <0.9 Indete rminate 0.9 - 1.0 Positive >1.0 PERFORMED BY: Visto70 [facility] [id number] H pylori, IgM, IgG, IgA Ab <0.80 Normal 0.00-0.79 [facility] Work Phone: Comment on above: Negative <0.80 Equiv ocal 0.80 - 1.19 Positive >1.19 . Current studies suggest that H. pylori IgM testing should be performed concomitantly with H. pylori IgA and/or IgG tests to support a diagnosis of Helicobacter pylori infection. . For research use only, not for use in clinical diagnostic procedures. PERFORMED BY: BugBusterAt[facility] Health [facility] [id number] H pylori, IgM, IgG, IgA Ab <0.89 Normal 0.00-0.88 [facility] Medicine Work Phone: Comment on above: Negative <0.89 Equiv ocal 0.89 - 0.99 Positive >0.99 PERFORMED BY: [facility]usterAt[facility] [id number] Magnesium, SerumOrdered By: Skidder Runner on 10-06-2011 Magnesium mass conc 2.0 mg/dL Normal 1.6-2.6 Compr [facility] Internal Medicine Work Phone: Comment on above: PERFORMED BY: Bug[facility]usterAt[facility] [id number] TSHOrdered By: System Manage r on 10-06-2011 Thyrotropin Qn 0.961 {uIU/mL} Normal 0.450-4.[address] [facility] Internal Medicine Work Phone: Comment on above: PERFORMED BY: [facility] hospital [id number] Rapid Flu (55066 x 2)Ordered By: Bonnie Terry on 12-18-2010 FLUAV Ag IA Ql (Throat) Negative Normal [facility] Work Phone: FLUAV Ag IA Ql (Throat) Negative Normal [facility]; [facility] Work Phone: Viral Cul, Rapid Flu Rfx H1N 1Ordered By: Skidder Runner on 12-18-2010 Viral Cul, Rapid Flu Rfx H1N1 FLUABN Normal [facility] Work Phone: Comment on above: Negative:No Influenz a A or B detected. PATIENT NOT FASTINGP ERFORMED BY: [facility] HospitalCoLourdes Specialty HospitalAigtys8714 [facility] [id number] VIT D,25 13035Dajcarv By: Gary toscano Gate Person on 06-01-2010 VIT D,25 71901 32.9 ng/mL Normal 32.0-100.0 Comprehens [facility] Work Phone: Comment on above: Recent studies consi martin the lower limit of 32.0 ng/mL to leroy threshold for optimal health.Raul THORNE. J Nutr. 2004;135(2):317-22.Performed at: [facility] Lab[address] [id number] Director: Sanjuanita Lassiter MD, Phone: [phone] B12/FOLATESOrdered By: Jeimy rivera Gate Person on 05-30-2010 Cobalamin (Vitamin B12) mass conc 505 pg/mL Normal 254-1320 [facility] Work Phone: Comment on above: There is a low frequ ency possibility that high titers ofintrinsic blocking antibodies may not be completely inactivated during the reaction pretreatment stepof this testing method. If test results are in conflictwith the clinical diagnosis, patient should be testedfor the presence of intrinsic factor blocking antibodies. Folate mass conc 15.10 ng/mL Normal 3.1-17.5 Compreh ensive [facility] Medicine Work Phone: C-REACTIVE PROTOrdered By: Lillie aranam Gate Person on 05-30-2010 CRP mass conc 7.71 mg/L Abnormal 0.0-3.0 Comprehensi ve Internal Medicine Work Phone: Comment on above: C-Reactive Protein ( CRP) provides useful information for thediagnosis, therapy and monitoring of inflammatory processesand associated diseases. For the evaluation of Relative Riskfor Cardiovascular Disease, a High Sensitivity CRP (HSCRP)should be ordered. CBCDOrdered By: System Manag er on 05-30-2010 Basophils/100 WBC (Bld) 0.7 % Normal 0-1 C omprehens[facility] Work Phone: Eosinophils/100 WBC (Bld) 2.0 % Normal 0-5 [facility] Work Phone: Erythrocyte distribution width Ratio (RBC) 13.5 % Normal 11.6-14.6 [facility] Work Phone: Hematocrit Volume Fraction (Bld) 40.1 % Normal 37-47 [facility] Work Phone: Hemoglobin mass conc (Bld) 13.5 g/dL Normal 12.0-16.0 [facility] Work Phone: Lymphocytes/100 WBC (Bld) 33.3 % Normal 19-41 [facility] Work Phone: MCH Entitic mass (RBC) 29.8 pg Normal 27.0-32.0 Co mprehensive [facility] Work Phone: MCHC mass conc (RBC) 33.8 g/dL Normal 32-36 Comp rehensive Internal Medicine Work Phone: MCV Entitic volume (RBC) 88.4 fL Normal 81-99 [facility] Work Phone: Monocytes/100 WBC (Bld) 4.3 % Normal 0-10 [facility] o[facility]rehens[facility] Work Phone: Neutrophils #/vol (Bld) 4.7 3/uL Normal 2.0-7.7 [facility] Work Phone: Neutrophils/100 WBC (Bld) 59.7 % Normal 47-70 [facility] Internal Medicine Work Phone: Platelet mean volume Entitic volume (Bld) 7.4 fL Normal 6.5-12.0 Comprehensi ve Internal Medicine Work Phone: Platelets #/vol (Bld) 373 10*3/uL Normal 150-450 Co mprehensive [facility] Work Phone: RBC #/vol (Bld) 4.54 {M/mm3} Normal 4.2-5.4 Compreh ensive [facility] Medicine Work Phone: WBC #/vol (Bld) 7.9 10*3/uL Normal 4.4-11.0 Comprehe nsive Internal Medicine Work Phone: COMP METABOLICOrdered By: Sy stem Gate Person on 05-30-2010 Albumin mass conc 3.8 g/dL Normal 3.4-5.0 [facility] ensive Internal Medicine Work Phone: Albumin/Globulin mass ratio 1.0 {RATIO} Normal 0.9-2.4 [facility] Internal Medicine Work Phone: ALP enzyme act/vol 63 U/L Normal 50-136 [facility] Internal Medicine Work Phone: ALT enzyme act/vol 18 U/L Normal 12-[address] [facility] Internal [facility] Work Phone: Anion gap molar conc 10 mmol/L Normal 5-15 [facility] Work Phone: AST enzyme act/vol 10 U/L Abnormal 15-37 [facility] Internal Medicine Work Phone: Bilirubin mass conc 0.40 mg/dL Normal 0.00-1.00 Compr [facility] Internal Medicine Work Phone: Calcium mass conc 9.2 mg/dL Normal 8.5-10.1 Compreh [facility] Work Phone: Chloride molar conc 104 mmol/L Normal 98-[address] [facility] Internal Medicine Work Phone: CO2 molar conc 27.0 mmol/L Normal 21.0-32.0 Comprehva [facility] Internal Medicine Work Phone: Creatinine mass conc 1.0 mg/dL Normal 0.6-1.0 [facility] Internal Medicine Work Phone: GFR/1.73 sq M predicted among blacks MDRD vol rate/area (S/P/Bld) 80 mL/min/{1.73_m2} Normal Comprehe ive Internal Medicine Work Phone: GFR/1.73 sq M.predicted MDRD vol rate/area 66 mL/min/{1.73_m2} Normal Comprehen [facility] Internal Medicine Work Phone: Globulin mass conc (S) 3.7 g/dL Normal 2.7-4.2 [facility] Work Phone: Glucose mass conc 76 mg/dL Normal 70-110 Compreh [facility] Work Phone: Potassium molar conc 4.8 mmol/L Normal 3.5-5.1 Comp rehensive Internal Medicine Work Phone: Protein mass conc 7.5 g/dL Normal 6.4-8.2 Compreh ensive Internal Medicine Work Phone: Sodium molar conc 141 mmol/L Normal 136-145 Compreh ensive Internal Medicine Work Phone: Urea nitrogen mass conc 16 mg/dL Normal 7-18 C omprehensive [facility] Work Phone: Urea nitrogen/Creatinine mass ratio 16.0 {RATIO} Normal 10-20 [facility] Work Phone: ESROrdered By: Kaufmann Mercantile on 05-30-2010 ESR Velocity (Bld) 17 mm/h Normal 0-20 Compre hensive Internal Medicine Work Phone: MONOTESTOrdered By: System Autobase anager on 05-30-2010 Monocytes #/vol (Bld) SeeNote Normal Com prehensive Internal Medicine Work Phone: Comment on above: Result: Negative TSHOrdered By: Kaufmann Mercantile on 05-30-2010 Thyrotropin Qn 0.49 {uIU/mL} Normal 0.358-3.74 Compreh ensive Internal Medicine Work Phone: Urinalysis, Office ([id number])Or dered By: Maliha Mcguire on 05-30-2010 Bilirubin Ql (U) Negative Normal Comprehe nsive Internal Medicine Work Phone: Comment on above: on menses Bilirubin Ql (U) Negative Normal Comprehe nsive Internal Medicine; [facility] Work Phone: Comment on above: on menses Glucose Test strip (U) [Mass/Vol] Negative Normal [facility]; [facility] Work Phone: Comment on above: on menses Glucose Test strip mass conc (U) Negative Normal [facility] Work Phone: Comment on above: on menses Hemoglobin Ql (U) Hemolyzed Large Normal Co mprehensive [facility] Work Phone: Comment on above: on menses Ketones Ql (U) Negative Normal Comprehens [facility] Work Phone: Comment on above: on menses Ketones Ql (U) Negative Normal Comprehens [facility]; [facility] Work Phone: Comment on above: on menses Leukocyte esterase Test strip Ql (U) Negative Normal [facility] Work Phone: Comment on above: on menses Leukocyte esterase Test strip Ql (U) Negative Normal [facility]; [facility] Work Phone: Comment on above: on menses Nitrite Ql (U) Negative Normal Comprehens [facility] Work Phone: Comment on above: on menses Nitrite Ql (U) Negative Normal Comprehens [facility]; [facility] Work Phone: Comment on above: on menses pH (U) 6.0 [pH] Normal [facility] Work Phone: Comment on above: on menses Protein Ql (U) Negative Normal Comprehens [facility] Work Phone: Comment on above: on menses Protein Ql (U) Negative Normal Comprehens [facility]; [facility] Work Phone: Comment on above: on menses Specific gravity Relative Density (U) 1.025 1 Normal Comprehensi ve Internal Medicine Work Phone: Comment on above: on menses Urobilinogen mass/time (24H U) Normal Normal [facility] Work Phone: Comment on above: on menses Urine Test, Office ([id number])Ordered By: Maliha Mcguire on 05-30-2010 Beta HCG ( test) Ql (U) Negative Normal [facility]; [facility] Work Phone: HCG.beta subunit ( test) Ql (U) Negative Normal Comprehe nsive Internal Medicine Work Phone: BRAIN/HEAD W/WO CONTRASTOrde red By: Skidder Runner on 05-06-2008 BRAIN/HEAD W/WO CONTRAST See Note Normal [facility] Work Phone: Comment on above: Exam Number: [id number] CT SCAN OF THE BRAIN WITHOUT/WITH INTRAVENOUS CONTRAST. REASON FOR EXAMINATIONHeadaches. TECHNIQUEHelical CT acquisition of the brain was performed after theintravenous administration of 100 cc of low-osmolar contrast. Imagesare formatted in the axial projection. FINDINGSThere is no intracranial hemorrhage, mass effect, or midline shift. No CT scan evidence for acute cerebral infarction. There is no focalarea of abnormal contrast enhancement. No abnormal intra orextra-axial fluid collection is demonstrated. There is no depressedskull fracture. Incidental note is made of choroid plexus and pinealgland calcification. IMPRESSIONNo acute intracranial process is demonstrated. Reported By: YOBANY RUELAS MD Vital Signs Date Time Vital Sign Value Performing Clinician Facility 04-12-2021 09:040 Body height 172.72 cm [facility]; [facility] Work Phone: 04-12-2021 09:21-0400 Body mass index (BMI) [Ratio] 28.86 kg/m2 [facility]; [facility] Work Phone: 04-12-2021 [id number]:[id number] Body surface area Derived from formula 2 m2 [facility]; [facility] Work Phone: 04-12-2021 [id number] Body temperature 97.3 [degF] [facility]; [facility] Work Phone: Comment on above: Method: Thermal Scan 04-12-2021 09:21-0400 Body weight 86.09 kg [facility]; [facility] Work Phone: 04-12-2021 09:21-0400 Diastolic blood pressure 82 mm[Hg] [facility]; [facility] Work Phone: Comment on above: Patient Position: Sitting; Cuff Location : Left Arm; Cuff Size: Standard 04-12-2021 09:21-0400 Heart rate 81 /min [facility]; [facility] Work Phone: Comment on above: Pattern: Regular 04-12-2021 09:21-0400 Respiratory rate 16 /min Bria Melissa [facility]; [facility] Work Phone: Comment on above: Pattern: Unlabored 04-12-2021 09:21-0400 Systolic blood pressure 130 mm[Hg] Bria Melissa CMA [facility]; [facility] Work Phone: Comment on above: Patient Position: Sitting; Cuff Location : Left Arm; Cuff Size: Standard 06-17-2013 08:04-0500 BMI (Body Mass Index) 24.6 kg/m2 Danuta Questel CRABBER Comprehen sive Internal Medicine Work Phone: 06-17-2013 08:04-0500 Body Temperature 98.2 [degF] Danuta Questel CRABBER [facility] Work Phone: 06-17-2013 08:04-0500 Body weight 73.39 kg Danuta Questel CRABBER [facility]; [facility] Work Phone: 06-17-2013 08:04-0500 BP Diastolic 68 mm[Hg] Danuta Questel CRABBER [facility] Work Phone: Comment on above: Patient Position: Sitting; Cuff Location : Left Arm; Cuff Size: Standard 06-17-2013 08:04-0500 BP Systolic 108 mm[Hg] Danuta Questel CRABBER [facility] Work Phone: Comment on above: Patient Position: Sitting; Cuff Location : Left Arm; Cuff Size: Standard 06-17-2013 08:04-0500 BSA (Body Surface Area) 1.87 m2 Danuta Questel CRABBER [facility] Work Phone: 06-17-2013 08:04-0500 Height 172.72 cm Danuta Questel CRABBER [facility] Work Phone: 06-17-2013 08:04-0500 Pulse (Heart Rate) 100 /min Danuta Questel CRABBER Comprehensiv e Internal Medicine Work Phone: Comment on above: Pattern: Regular 06-17-2013 08:04-0500 Respiratory Rate 18 /min Danuta Taurusdavid REED [facility] Work Phone: Comment on above: Pattern: Unlabored 06-17-2013 08:04-0500 Weight 73.39 kg Justina Hendrickson [facility] Internal Medicine Work Phone: 04-19-2013 08:45-0400 BMI (Body Mass Index) 24.94 kg/m2 Laurel Kohli Comprehen sive Internal Medicine Work Phone: 04-19-2013 08:45-0400 Body Temperature 98.4 [degF] Laurel Kohli [facility] Work Phone: 04-19-2013 08:45-0400 Body weight 74.39 kg Laurel Kohli [facility]; [facility] Work Phone: 04-19-2013 08:45-0400 BP Diastolic 80 mm[Hg] Laurel Kohli [facility] Medicine Work Phone: Comment on above: Patient Position: Sitting; Cuff Location : Left Arm; Cuff Size: Standard 04-19-2013 08:45-0400 BP Systolic 106 mm[Hg] Laurel Kohli [facility] Internal Medicine Work Phone: Comment on above: Patient Position: Sitting; Cuff Location : Left Arm; Cuff Size: Standard 04-19-2013 08:45-0400 BSA (Body Surface Area) 1.88 m2 Laurel Kohli [facility] Medicine Work Phone: 04-19-2013 08:45-0400 Height 172.72 cm Laurel Kohli [facility] Work Phone: 04-19-2013 08:45-0400 Pulse (Heart Rate) 88 /min Laurel Kohli Comprehensiv e Internal Medicine Work Phone: Comment on above: Pattern: Regular 04-19-2013 08:45-0400 Respiratory Rate 16 /min Laurel Kohli [facility] Work Phone: Comment on above: Pattern: Unlabored 04-19-2013 08:45-0400 Weight 74.39 kg Justina Hendrickson [facility] Work Phone: 10-20-2011 09:55-0400 BMI (Body Mass Index) 25.85 kg/m2 Maliha Mcguire RN [facility] Work Phone: 10-20-2011 09:55-0400 Body Temperature 98.3 [degF] Maliha Mcguire RN [facility] Work Phone: Comment on above: Method: Oral 10-20-2011 09:55-0400 Body weight 77.11 kg Maliha Mcguire RN [facility]; [facility] Work Phone: 10-20-2011 09:55-0400 BP Diastolic 70 mm[Hg] Maliha Mcguire RN [facility] Work Phone: Comment on above: Patient Position: Sitting; Cuff Location : Left Arm; Cuff Size: Large 10-20-2011 09:55-0400 BP Systolic 110 mm[Hg] Maliha Mcguire RN [facility] Work Phone: Comment on above: Patient Position: Sitting; Cuff Location : Left Arm; Cuff Size: Large 10-20-2011 09:55-0400 BSA (Body Surface Area) 1.91 m2 Maliha Mcguire RN [facility] Work Phone: 10-20-2011 09:55-0400 Height 172.72 cm Maliha Mcguire RN [facility] Work Phone: 10-20-2011 09:55-0400 Pulse (Heart Rate) 88 /min Maliha Mcguire RN [facility] Work Phone: Comment on above: Pattern: Regular 10-20-2011 09:55-0400 Respiratory Rate 16 /min Maliha Mcguire RN [facility] Work Phone: Comment on above: Pattern: Unlabored 10-20-2011 09:55-0400 Weight 77.11 kg Justina Fast [facility] Work Phone: 10-06-2011 10:36-0400 BMI (Body Mass Index) 25.39 kg/m2 Justina Fast [facility] Work Phone: 10-06-2011 10:36-0400 Body Temperature 100 [degF] Justina Fast [facility] Work Phone: Comment on above: Method: Oral 10-06-2011 10:36-0400 Body weight 75.75 kg Justina Hendrickson DO Work Phone: [facility]; [facility] Work Phone: 10-06-2011 10:36-0400 BP Diastolic 72 mm[Hg] Justina Fast [facility] Work Phone: Comment on above: Patient Position: Sitting; Cuff Location : Left Arm; Cuff Size: Standard 10-06-2011 10:36-0400 BP Systolic 120 mm[Hg] Justina Fast [facility] Work Phone: Comment on above: Patient Position: Sitting; Cuff Location : Left Arm; Cuff Size: Standard 10-06-2011 10:36-0400 BSA (Body Surface Area) 1.89 m2 Justina Fast [facility] Work Phone: 10-06-2011 10:36-0400 Height 172.72 cm Justina Fast [facility] Work Phone: 10-06-2011 10:36-0400 Pulse (Heart Rate) 70 /min Justina Fast [facility] Work Phone: Comment on above: Pattern: Regular 10-06-2011 10:36-0400 Respiratory Rate 15 /min Justina Fast [facility] Work Phone: Comment on above: Pattern: Unlabored 10-06-2011 10:36-0400 Weight 75.75 kg Justina Fast [facility] Work Phone: 12-18-2010 15:11-0400 Pulse Oximetry 99 % Justina Fast [facility] Work Phone: Comment on above: Room air 12-18-2010 15:11-0400 SaO2% (BldA) [Mass fraction] 99 % Bonnie Terry RN [facility]; [facility] Work Phone: Comment on above: Room air 12-18-2010 15:05-0400 Body Temperature 96.4 [degF] Bonnie Terry RN [facility] Work Phone: Comment on above: Method: Oral 12-18-2010 15:05-0400 Body weight 72.58 kg Bonnie Terry RN [facility]; [facility] Work Phone: 12-18-2010 15:05-0400 BP Diastolic 78 mm[Hg] Bonnie Terry RN [facility] Work Phone: Comment on above: Patient Position: Sitting; Cuff Location : Left Arm; Cuff Size: Standard 12-18-2010 15:05-0400 BP Systolic 120 mm[Hg] Bonnie Terry RN [facility] Work Phone: Comment on above: Patient Position: Sitting; Cuff Location : Left Arm; Cuff Size: Standard 12-18-2010 15:05-0400 Pulse (Heart Rate) 64 /min Bonnie Terry RN [facility] Work Phone: Comment on above: Pattern: Regular 12-18-2010 15:05-0400 Respiratory Rate 16 /min Bonnie Terry RN [facility] Work Phone: Comment on above: Pattern: Unlabored 12-18-2010 15:05-0400 Weight 72.58 kg Justina Emeka [facility] Work Phone: 06-07-2010 13:44-0500 Body weight 72.58 kg Sofiya Salazar RN [facility]; [facility] Work Phone: 06-07-2010 13:44-0500 BP Diastolic 82 mm[Hg] Sofiya Salazar RN [facility] Work Phone: Comment on above: Patient Position: Sitting; Cuff Location : Left Arm; Cuff Size: Standard 06-07-2010 13:44-0500 BP Systolic 128 mm[Hg] Sofiya Salazar RN [facility] Work Phone: Comment on above: Patient Position: Sitting; Cuff Location : Left Arm; Cuff Size: Standard 06-07-2010 13:44-0500 Pulse (Heart Rate) 64 /min Sofiya Salazar RN [facility] Work Phone: Comment on above: Pattern: Regular 06-07-2010 13:44-0500 Respiratory Rate 20 /min Sofiya Salazar RN [facility] Work Phone: Comment on above: Pattern: Unlabored 06-07-2010 13:44-0500 Weight 72.58 kg Justina Hendrickson [facility] Work Phone: 05-30-2010 09:21-0500 Body weight 72.58 kg Sofiya Salazar RN [facility]; [facility] Work Phone: 05-30-2010 09:21-0500 BP Diastolic 72 mm[Hg] Sofiya Salazar RN [facility] Work Phone: Comment on above: Patient Position: Sitting; Cuff Location : Left Arm; Cuff Size: Large 05-30-2010 09:21-0500 BP Systolic 124 mm[Hg] Sofiya Salazar RN [facility] Work Phone: Comment on above: Patient Position: Sitting; Cuff Location : Left Arm; Cuff Size: Large 05-30-2010 09:21-0500 Pulse (Heart Rate) 72 /min Sofiya Salazar RN [facility] Work Phone: Comment on above: Pattern: Regular 05-30-2010 09:21-0500 Respiratory Rate 18 /min Sofiya Salazar RN [facility] Work Phone: Comment on above: Pattern: Unlabored 05-30-2010 09:21-0500 Weight 72.58 kg Justina Hendrickson [facility] Work Phone: 08-13-2009 07:53-0500 Body Temperature 97.6 [degF] ZEFERINO Frausto LPN [facility] Work Phone: Comment on above: Method: Oral 08-13-2009 07:53-0500 BP Diastolic 70 mm[Hg] ZEFERINO Frausto LPN [facility] Work Phone: Comment on above: Patient Position: Sitting; Cuff Location : Left Arm; Cuff Size: Standard 08-13-2009 07:53-0500 BP Systolic 104 mm[Hg] ZEFERINO Frausto LPN [facility] Work Phone: Comment on above: Patient Position: Sitting; Cuff Location : Left Arm; Cuff Size: Standard 08-13-2009 07:53-0500 Pulse (Heart Rate) 74 /min ZEFERINO Frausto LPN [facility] Work Phone: Comment on above: Pattern: Regular 08-13-2009 07:53-0500 Respiratory Rate 18 /min ZEFERINO Jett MCBRIDE [facility] Work Phone: Comment on above: Pattern: Unlabored 05-15-2009 13:49-0500 Body Temperature 97.9 [degF] Laurel Kamilla [facility] Work Phone: Comment on above: Method: Undefined 05-15-2009 13:49-0500 Body weight 72.58 kg Laurel Kamilla [facility]; [facility] Work Phone: 05-15-2009 13:49-0500 BP Diastolic 76 mm[Hg] Laurel Kamilla [facility] Work Phone: Comment on above: Patient Position: Sitting; Cuff Location : Left Arm; Cuff Size: Standard 05-15-2009 13:49-0500 BP Systolic 106 mm[Hg] Laurel Kohli [facility] Work Phone: Comment on above: Patient Position: Sitting; Cuff Location : Left Arm; Cuff Size: Standard 05-15-2009 13:49-0500 Head Circumference 0 cm Justina Fast [facility] Work Phone: 05-15-2009 13:49-0500 Head Occipital-frontal circumference 0 cm Laurel Kohli [facility]; [facility] Work Phone: 05-15-2009 13:49-0500 Height 0 cm Laurel Kohli [facility] Work Phone: 05-15-2009 13:49-0500 Pulse (Heart Rate) 96 /min Laurel Kohli [facility] Work Phone: Comment on above: Pattern: Regular 05-15-2009 13:49-0500 Respiratory Rate 16 /min Laurel Kohli [facility] Work Phone: Comment on above: Pattern: Undefined 05-15-2009 13:49-0500 Weight 72.58 kg Justina Fast [facility] Work Phone: 06-09-2008 11:21-0500 Body Temperature 97.6 [degF] Laurel Kohli [facility] Work Phone: Comment on above: Method: Undefined 06-09-2008 11:21-0500 Body weight 76.66 kg Laurel Kohli [facility]; [facility] Work Phone: 06-09-2008 11:21-0500 BP Diastolic 70 mm[Hg] Laurel Kohli [facility] Work Phone: Comment on above: Patient Position: Sitting; Cuff Location : Right Arm; Cuff Size: Standard 06-09-2008 11:21-0500 BP Systolic 104 mm[Hg] Laurel Bainamilcarrocky [facility] Work Phone: Comment on above: Patient Position: Sitting; Cuff Location : Right Arm; Cuff Size: Standard 06-09-2008 11:21-0500 Head Circumference 0 cm Justina Fast [facility] Work Phone: 06-09-2008 11:21-0500 Head Occipital-frontal circumference 0 cm Laurel Bainjerson [facility]; [facility] Work Phone: 06-09-2008 11:21-0500 Height 0 cm Laurel Bainjerson [facility] Work Phone: 06-09-2008 11:21-0500 Pulse (Heart Rate) 84 /min Laurel Kohli [facility] Work Phone: Comment on above: Pattern: Regular 06-09-2008 11:21-0500 Respiratory Rate 16 /min Laurel Bainjerson [facility] Work Phone: Comment on above: Pattern: Undefined 06-09-2008 11:21-0500 Weight 76.66 kg Justina Fast [facility] Work Phone: 05-03-2008 11:40-0500 Body Temperature 97.7 [degF] Laurel Bainjerson [facility] Work Phone: Comment on above: Method: Undefined 05-03-2008 11:40-0500 Body weight 77.11 kg Laurel Kamilla [facility]; [facility] Work Phone: 05-03-2008 11:40-0500 BP Diastolic 74 mm[Hg] Laurel Kamilla [facility] Work Phone: Comment on above: Patient Position: Sitting; Cuff Location : Right Arm; Cuff Size: Standard 05-03-2008 11:40-0500 BP Systolic 100 mm[Hg] Laurel Kamilla [facility] Work Phone: Comment on above: Patient Position: Sitting; Cuff Location : Right Arm; Cuff Size: Standard 05-03-2008 11:40-0500 Head Circumference 0 cm Justina Fast [facility] Work Phone: 05-03-2008 11:40-0500 Head Occipital-frontal circumference 0 cm Laurel Kohli [facility]; [facility] Work Phone: 05-03-2008 11:40-0500 Height 0 cm Laurel Kohli [facility] Work Phone: 05-03-2008 11:40-0500 Pulse (Heart Rate) 84 /min Laurel Kohli [facility] Work Phone: Comment on above: Pattern: Regular 05-03-2008 11:40-0500 Respiratory Rate 16 /min Laurel Kohli [facility] Work Phone: Comment on above: Pattern: Undefined 05-03-2008 11:40-0500 Weight 77.11 kg Justina Fast [facility] Work Phone: Encounters Encounter Date Encounter Type Care Provider Facility Start: 08-11-2022 ambulatory Justina A Fast DO [facility] Start: 08-28-2021 End: 08-28-2021 Office outpatient visit 5 minutes Justina Fast DO Work Phone: [facility] Start: 04-12-2021 End: 04-17-2021 Office outpatient visit 25 minutes Justina Fast DO Work Phone: [facility] Start: 07-21-2018 End: 07-21-2018 Phone Encounter Justina Fast [facility] Start: 06-17-2013 End: 06-17-2013 Patient encounter procedure Justina Fast [facility] Start: 04-19-2013 End: 04-19-2013 Patient encounter procedure Justina Emeka [facility] Start: 10-20-2011 End: 10-20-2011 Office outpatient visit 15 minutes Justina Hendrickson [facility] Start: 10-06-2011 End: 10-06-2011 Office outpatient visit 25 minutes Justina Hendrickson [facility] Start: 12-18-2010 End: 12-18-2010 Office outpatient visit 25 minutes Justina Hendrickson [facility] Start: 06-07-2010 End: 06-07-2010 Patient encounter procedure Justina Emeka [facility] Start: 05-30-2010 End: 05-30-2010 Patient encounter procedure Justina Emeka [facility] Start: 08-13-2009 End: 08-13-2009 Office outpatient visit 10 minutes Justina Hendrickson [facility] Start: 05-15-2009 End: 05-15-2009 Patient encounter procedure Justina Hendrickson [facility] Start: 06-09-2008 End: 06-11-2008 Patient encounter procedure Justina Emeka [facility] Start: 05-05-2008 End: 05-05-2008 Historical Summary Justina Hendrickson [facility] Start: 05-03-2008 End: 05-04-2008 Patient encounter procedure Justina Hendrickson [facility] Procedures Date Procedure Procedure Detail Performing Clinician Start: 04-10-2021 End: 04-17-2021 Emergency Department Summary Comments: See Note; NOTES: [facility] Medical Records Department [address] [place] [address] Emergency Department Summary 04/10/21 MR#: [id number] Acct: [id number] Name: ALVINLAUREL Piedad Rep #: [id number] : 1970 50 From: Kyle Matta MD PCP: Dr. Justina Hendrickson, DO Status:REG ER Location: ED HPI History of Present Illness Chief Complaint: Chest Pain Narrative Narrative: Patient presents with what she thinks is high blood pressure at home based on a home reading however she also has these episodes where she feels very anxious and tearful and has some chest discomfort at the time. She has no back pain or tearing sensation she has no pleuritic component. She has no DVT or PE risk factors. No calf pain or leg pain. No fevers chills cough or congestion. This has been happening over the past few days especially in the morning. She does not have a history of hypertension, she does not take any medications. [facility] Medical History no medical history Home Medications paroxetine HCl [Paxil] 10 mg PO DAILY #30 tab 04/10/21 [Rx Last Taken Unknown] Allergy/AdvReac Type Severity Reaction Status Date / Time No Known Allergies Allergy Verified 04/10/21 09:55 Surgical History no surgical history Social History Smoking Status: Never smoker ROS ROS ED ROS Narrative Past medical history: None Medications: None Social history: Noncontributory, non-smoker, she tells me she is under stress with her job but she does not think it is too much out of the ordinary for her. Review of systems: All systems negative except as indicated General: No fever Eyes: No visual changes ENT: No upper airway congestion, normal voice Neck: No neck pain Cardiovascular: Chest discomfort Respiratory: No shortness of breath or cough Gastrointestinal: No abdominal pain, nausea vomiting or diarrhea Genitourinary: No dysuria Musculoskeletal: Denies myalgias no difficulty with ambulation Skin: No rash Neurological: No memory loss, confusion or any focal weakness Psych: Anxious and tearful, she does not want to hurt her self Hematologic: No easy bleeding or easy bruising EXAM Physical Exam Narrative Exam Narrative: Physical exam General: She is slightly tearful but appears in no significant distress otherwise Head: Normocephalic, Atraumatic Eyes: Conjunctiva not pale ENT: Moist mucous membranes Neck: Supple, Nontender, No lymphadenopathy Cardiovascular: Regular rate, Regular rhythm Respiratory: No distress, CTA bilaterally Abdomen: Soft, Nontender, Nondistended Back: Nontender, Normal Inspection. Negative for: CVA tenderness Extremities: Nontender, No edema Skin: Normal color, No rash Neurological: Alert, Normal Strength, Normal Sensation Psychological: Normal affect Const Vital Signs: 04/10/21 09:50 04/10/21 09:51 04/10/21 09:55 Temperature 98.0 F Temperature Source Temporal Pulse Rate 78 97 Respiratory Rate 18 20 H Respiratory Effort Short of Breath Blood Pressure 122/94 H 136/93 H Blood Pressure Mean 103 107 Pulse Ox 100 100 Oxygen Delivery Method Room Air 04/10/21 11:50 Temperature Temperature Source Pulse Rate 71 Respiratory Rate 12 Respiratory Effort Blood Pressure 117/83 H Blood Pressure Mean 94 Pulse Ox 97 Oxygen Delivery Method Room Air MDM MDM MDM Narrative Medical decision making narrative: Patient has a normal emergency department work-up. She appears well I did give her Ativan which improved her symptoms. She apparently has been feeling this for some time, now that I am talking to her . She does have an appointment with her PCP in 3 days but I believe it is reasonable to start her on Paxil since it does have anxiolytic properties also. Anything changes she is to return. Lab Data Labs: Laboratory Results - last 24 hr 04/10/21 04/10/21 10:05 10:05 WBC 8.1 RBC 4.56 Hgb 12.8 Hct 39.2 MCV 86.0 MCH 28.1 MCHC 32.7 RDW Std Deviation 41.0 RDW Coeff of [place] 13.2 Plt Count 455 H MPV 10.2 Immature Gran % (Auto) 0.200 Neut % (Auto) 64.4 Lymph % (Auto) 29.8 [place] % (Auto) 4.1 Eos % (Auto) 1.0 Baso % (Auto) 0.5 Absolute Neuts (auto) 5.2 Absolute Lymphs (auto) 2.41 Nucleated RBC % 0 Sodium 140 Potassium 3.8 Chloride 110 H Carbon Dioxide 23.0 Anion Gap 7 BUN 13 Creatinine 0.88 Estim Creat Clear Calc 78.01 Est GFR (MDRD) Af Amer 88 Est GFR (MDRD) Non-Af 73 BUN/Creatinine Ratio 14.8 Glucose 97 Calcium 9.1 Total Bilirubin 0.40 AST 28 ALT 26 Alkaline Phosphatase 88 Troponin I High Sens 3 Total Protein 7.9 Albumin 3.5 Globulin 4.4 H Albumin/Globulin Ratio 0.8 L TSH 1.17 EKG Initial EKG: Comments: Normal sinus rhythm with a rate of 91. Normal RI interval, slightly prolonged QTC at 482. Otherwise nonspecific ST changes throughout no acute changes. Interpreted by emergency doctor. Discharge Plan Triage Chief Complaint: Chest Pain ED Provider: Kyle Matta Dx/Rx/DC Orders Clinical Impression: Chest pain, Anxiety Instructions: ED Anxiety Reaction, ED Chest Pain, Noncardiac Prescriptions: New paroxetine HCl [Paxil] 10 mg tablet 10 mg PO DAILY Qty: 30 RF: 0 Primary Care Provider: Justina Hendrickson Referrals: Justina Hendrickson, [Primary Care Provider] - 3-5 Days Disposition Disposition: Home, Self Care What to do if you have Problems For any increased pain, shortness of breath, bleeding, nausea or vomiting, chest pain, or any unexpected problems, contact your Primary Care Provider. Call [facility] ([phone]) or report to the closest Emergency Room. Call 911 if necessary. 04/10/21 1206 <Electronically signed by Kyle Matta MD> Cosigner Signature (if applicable): CC: Dr. Justina Hendrickson DO Signed Justina Hendrickson DO Work Phone: Start: 04-10-2021 End: 04-12-2021 12 Lead EKG Comments: See Note; NOTES: [facility] Cardiovascular Services [address] [place] [address] 12 Lead EKG 04/10/21 0958 MR#: [id number] Acct: [id number] Name: LAUREL ESQUIVEL Rep #: [id number] : 1970 50 From: Amari Cabral MD Attending Dr: Status: DEP ER Ordering Dr: Kyle Matta MD Date: 04/10/21 Location: ED Sex: F C Admitted: Test Reason : CHEST PAIN Blood Pressure : / mmHG Vent. Rate : 091 BPM Atrial Rate : 091 BPM P-R Int : 114 ms QRS Dur : 086 ms QT Int : 392 ms P-R-T Axes : 021 027 047 degrees QTc Int : 482 ms Normal sinus rhythm Nonspecific ST and T wave abnormality Prolonged QT Abnormal ECG Confirmed by CHRISSIE JONES, SEDA ([id number]), business editor BEN WHITMORE ([id number]) on 04/11/2021 1:47:07 PM Referred By: ES Confirmed By:KEELY CABRAL MD 04/11/21 9737 Date Amari Cabral MD CC: Dr. Justina Hendrickson DO; Dr. Kyle Matta MD Signed Justina Hendrickson DO Work Phone: Start: 01-04-2020 End: 01-05-2020 Emergency Department Summary Comments: See Note; NOTES: [facility] Medical Records Department [address] [place] [address] Emergency Department Summary 01/04/20 MR#: [id number] Acct: [id number] Name: LAUREL ESQUIVEL Rep #: [id number] : 1970 49 From: Dequan Bhatt MD PCP: Dr. Justina Hendrickson, DO Status:DEP ER - ER Visit Summary Date of Service: 01/04/20 Chief Complaint: Laceration History of Present Illness: The patient is a [address] hendrickson. She reports just prior to coming emerge department she was helping move volleyball equipment and the pole caused a laceration to her right foot. She denies any pain. No paresthesias distally. She is unsure when her last tetanus shot was. Physical Examination: Vitals: Stable. Afebrile. General: Well-nourished and well-developed. Head: Normocephalic atraumatic. Neck: Supple, no lymphadenopathy. No JVD. Nontender. Cardiovascular: Regular rate and rhythm. No murmurs. Respiratory: No respiratory distress. Clear to auscultation bilaterally. Abdominal: Soft, nontender, nondistended, normal bowel sounds. No guarding, rebound, or peritoneal signs. Back: Nontender. Extremities: 4 cm laceration to the medial side of her right foot. It this is over the proximal portion of the first metatarsal. There is no soft tissue swelling. There is no tenderness to palpation. She is neuro vas intact distally, no edema. Skin: Normal color, no rash. Neurologic: Alert and oriented ???3. Cranial nerves II through XII are intact. Normal strength and sensation. Psych: Normal affect. Emergency Department Course and Treatment: Patient refused pain medications. She had her wound anesthetized and repaired. She tolerated this well. Her tetanus was updated. Treatment Plan: Patient will be discharged instructions follow-up Dr. hendrickson in 10 to 14 days for suture removal. Return to the emergency department for any worsening symptoms. Disposition: To home in improved and stable condition. Impression: 1 1. Right foot laceration, 4 cm, repaired. Procedure note: Wound was cleansed with chlorhexidine soap. Anesthetized with 1% lidocaine without epinephrine. Copiously irrigated with normal saline. Wound was explored there is no foreign material present. It was closed with 5 simple interrupted 4-0 ethilon sutures. The patient tolerated it well. This note was generated with [employer] dictation software. It may contain incorrect words, spelling, and punctuation that were not noted in review of the chart prior to signing ED Disposition - Plan for ED Patient: Disposition: Home or Assisted Living Instructions: ED Laceration Ext Sutr Stap Tape Referrals: Justina Hendrickson DO [Primary Care Provider] - 10-14 Days suture removal What to do if you have Problems For any increased pain, shortness of breath, bleeding, nausea or vomiting, chest pain, or any unexpected problems, contact your Primary Care Provider. Call [facility] ([phone]) or report to the closest Emergency Room. Call 911 if necessary. 01/05/20 0734 <Electronically signed by Dequan Bhatt MD> Date Dequan Bhatt MD Cosigner Signature (If Indicated): Date CC: DO Justina Márquez DO Work Phone: Start: 05-26-2013 End: 05-26-2013 PT Discharge Summary Comments: See Note; NOTES: [facility] Physical Therapy [facility] [place] [address] Fax REHABILITATION SERVICES DISCHARGE SUMMARY MR#: [id number] Acct: [id number] Name: LAUREL ESQUIVEL Rep #: [id number] : 1970 42 From: Anam Gan Referring : Justina Hendrickson DO Status: PRE RCR Eval Date: Discharge Date: DATE OF SERVICE: 05/24/2013 CLINICAL COURSE: Laurel Esquivel was seen in our clinic for a total of 7 visits with a diagnosis of neck pain. The patient, on her last visit, states she is 75 percent better overall, 0/10 pain. Our physical therapy treatment focused on manual therapy techniques to include cervical distraction, mobilization, Maria A exercises addressing the lateral component of the disk, and then eventually addressing a sagittal position. We educated the patient to posture exercises as well. Modalities were also implemented to control her pain. She had full range of motion, at the time of discharge, for flexion/extension without pain, lateral flexion, retraction. At this point, she is able to sleep throughout the night. She has met all her goals, independent with program, independent with posture, reduction of her pain, full range of motion of the cervical spine, as well as sleeping better throughout the night. She is discharged to follow up with you as needed. Once again, thank you for this referral. Sincerely, HARRISON Foreman C: Justina Hendrickson DO T: NTS JOB: [id number] <Electronically signed by Anam Gan > 05/26/13 1000 CC: * Signed Justina Hendrickson Work Phone: Start: 04-19-2013 End: 04-19-2013 Cerv Spine 4 or 5 Views Comments: See Note; NOTES: [facility] Imaging Services [address] [place] [id number] Radiology Report MR#: [id number] Acct: [id number] Name: LAUREL ESQUIVEL Rep #: [id number] : 1970 F 42 From: Simon Dozier MD PCP: Status: REG CLI Study: Cerv Spine 4 or 5 Views Date of Exam: 04/19/13 Exam# [id number] Ordering Dr: Justina Hendrickson DO STUDY: X-RAY - CERVICAL SPINE REASON FOR EXAM: Female, 42 years old. Right-sided neck pain and headaches. TECHNIQUE: 6 views of the cervical spine were obtained. COMPARISON: None FINDINGS: Normal anterior atlantoaxial articulation. Normal odontoid process. There is straightening of the normal cervical lordosis. Normal vertebral bodies and endplates. Normal disc space heights. Normal visualized intervertebral neuroforamina. The soft tissue structures are unremarkable. IMPRESSION: There is straightening of the normal cervical lordosis. Signed: Simon Dozier M.D. April 19, 2013 at 11:21:53 AM EDT [phone] Electronically Signed GP/GP If you are the referring physician and would like to consult with the radiologist who provided this interpretation, please contact Simon Dozier M.D. at [phone]. If this radiologist is unavailable, you will be directed to another radiologist to assist. If you are a patient with a question regarding this report, please contact your referring physician directly. Professional Interpretation Provided By: [employer], Phone , These documents contain legally protected and confidential health information intended only for the use of the individual or entity named above. If you are not the intended recipient, you are hereby notified that any disclosure, copying, distribution, or other use of these documents is strictly prohibited. If you have received this information in error, please notify the sender immediately and arrange for the return or destruction of these documents. CC: Justina Hendrickson DO Powerhouse Helper: Signed Justina Hendrickson Work Phone: H/O: surgery Tonsillectomy Bria zavaleta PREPARATOR Lumpectomy of breast Breast Mass ; Local Excision Bria Melissa PREPARATOR Plan of Treatment Date Care Activity Detail Author Start: 04-12-2021 Procedure Education Eprescribed prescriptions (G8553) [facility]; [facility] Work Phone: Start: 04-12-2021 Cyanocobalamin vitamin b-12 VITAMIN B12 AND FOLATES (68252) [facility]; [facility] Work Phone: Start: 04-12-2021 Assay of ferritin FERRITIN (35231) [facility]; [facility] Work Phone: Start: 04-12-2021 Assay of iron IRON & TOTAL IRON BINDING CAPACITY (05217) [facility]; [facility] Work Phone: Start: 04-12-2021 Blood count complete auto&auto difrntl wbc CBC W/AUTO DIFF WBC (04721) [facility]; [facility] Work Phone: Start: 07-21-2018 Comprehensive metabolic panel METABOLIC PANEL, COMPREHENSIVE (21831) [facility] Work Phone: Start: 07-21-2018 Urinalysis qual/semiquant except immunoassays URINALYSIS (51262) [facility] Work Phone: Start: 07-21-2018 Blood count complete automated CBC & PLATELETS (AUTO) (73874) [facility] Work Phone: Start: 10-06-2011 Provider Instructions for Treatment [facility]; [facility] Work Phone: Start: 10-06-2011 Assay of magnesium MAGNESIUM (01575) [facility]; [facility] Work Phone: Start: 10-06-2011 Magnesium mass conc MAGNESIUM (63283) [facility] Work Phone: Start: 10-06-2011 Comprehensive metabolic panel Metabolic Panel, Comprehensive (94917) [facility] Work Phone: Start: 10-06-2011 Blood count manual cell count each CBC with manual diff (49069) [facility] Work Phone: Start: 10-06-2011 Assay of thyroid stimulating hormone tsh TSH (11028) [facility]; [facility] Work Phone: Start: 10-06-2011 Thyrotropin Qn TSH (71037) [facility] Work Phone: Start: 10-06-2011 Fluorescent nonnfct agt antb screen ea antibody FLURESCNT ANTIB SCRN EA (61249) celiac profile [facility] Work Phone: Start: 10-06-2011 Immunoassay analyte qual/semiqual multiple step IMMUNOASSAY, ANALYTE (NON-INFECT) (64027) celiac profile [facility]; [facility] Work Phone: Start: 10-06-2011 Protein mass conc IMMUNOASSAY, ANALYTE (NON-INFECT) (49166) celiac profile [facility] Work Phone: Start: 10-06-2011 Assay of gammaglobulin iga igd igg igm each IGA/IGD/IGG/IGM-EACH (23442) celiac profile [facility] Work Phone: Start: 10-06-2011 Antibody helicobacter pylori HELICOBACTER PYLORI ANTIBODY (28869) [facility] Work Phone: Start: 10-06-2011 Iaad ia hpylori stool HELICO PYLORI, STOOL, INFCT ANTIGEN (03734) [facility] Work Phone: Start: 10-06-2011 Blood occult peroxidase actv qual feces 1 deter OCCULT BLOOD FECES SCREEN (50628) [facility] Work Phone: Start: 10-06-2011 Cul bact stool aerobic isol salmonella&shigell REGINALDO CULTURE-STOOL (18582) [facility] Work Phone: Start: 10-06-2011 Culture bacterial any source anaerobic iso&id C-DIFFICILE, STOOL (15998) [facility] Work Phone: Start: 10-06-2011 Leukocyte assmt fecal qual/semiquantitative LEUKOCYTE COUNT, FECAL (54815) [facility] Work Phone: Start: 10-06-2011 Ova&parasites direct smears concentration & id OVA & PARASITE DIR SMEAR (31363) [facility] Work Phone: Start: 12-18-2010 Provider Instructions for Treatment [facility]; [facility] Work Phone: Start: 06-07-2010 Provider Instructions for Treatment [facility] Medicine; [facility] Work Phone: Start: 05-30-2010 Provider Instructions for Treatment [facility]; [facility] Work Phone: Start: 05-30-2010 Glucose mass conc Glucose, PP/2 Hour (96375) [facility] Work Phone: Start: 05-30-2010 Glucose quantitative blood xcpt reagent strip Glucose, PP/2 Hour (07249) [facility]; [facility] Work Phone: Start: 05-30-2010 Heterophile antibodies screen MONOSPOT TEST (70434) [facility] Work Phone: Start: 05-30-2010 Sedimentation rate rbc non-automated SED RATE ERYTHROCYTE (96895) [facility] Work Phone: Start: 05-30-2010 25 hydroxy includes fractions if performed CALCIFIDIOL (51577) VIT D 25 [facility] Work Phone: Start: 05-30-2010 Assay of folic acid serum Folate (51815) [facility] Work Phone: Start: 05-30-2010 Cobalamin (Vitamin B12) mass conc VITAMIN B-12 (CYANOCOBALAMIN) (05128) [facility] Work Phone: Start: 05-30-2010 Cyanocobalamin vitamin b-12 VITAMIN B-12 (CYANOCOBALAMIN) (44192) [facility]; [facility] Work Phone: Start: 05-30-2010 Assay of thyroid stimulating hormone tsh TSH (08540) [facility]; [facility] Work Phone: Start: 05-30-2010 C-reactive protein C-REACTIVE PROTEIN (76721) [facility]; [facility] Work Phone: Start: 05-30-2010 Comprehensive metabolic panel METABOLIC PANEL, COMPREHENSIVE (10677) [facility] Work Phone: Start: 05-30-2010 CRP mass conc C-REACTIVE PROTEIN (86564) [facility] Work Phone: Start: 05-30-2010 Thyrotropin Qn TSH (07663) [facility] Work Phone: Start: 05-30-2010 Blood count complete automated CBC (AUTO) (92997) [facility] Work Phone: Start: 08-13-2009 Provider Instructions for Treatment [facility]; [facility] Work Phone: Start: 05-15-2009 Provider Instructions for Treatment Antibiotic Usage Education - Female [facility]; [facility] Work Phone: [facility] Work [facility]: [facility] Work Phone: [facility] Work Phone: [facility] Work Phone: [facility] Work [facility]: [facility] Work Phone: [facility] Work Phone: [facility] Work Phone: [facility] Work Phone: Immunizations Immunization Date Immunization Notes Care Provider [facility] 01-24-2021 COVID-Moderna (100 MCG/0.5 ML) Justina Fast DO Work Phone: [facility]; [facility] Work Phone: 05-03-2008 influenza, seasonal, injectable Justina Fast [facility] Work Phone: Payers Date Payer Category Payer Unknown [id number] 2010 Unknown [id number] 1971 Unknown [id number] Private Health Insurance [id number] Unknown Unknown [id number] Social History Date Type Detail Facility Alcohol Use Never smoker [facility] Work Phone: Comment on above: Occasional alcohol u se Walking, 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 [facility] Work Phone: Comment on above: 10/20/11 Tobacco use: Tobacco use: [facility] Work Phone: Comment on above: 10/20/11 Instructions Note Date & Type Note Facility Instructions Name Patient Instructions Indication:Anxiety Start: Instruction Type:Provider Instructions for Treatment How to Access Health Information Online using Patient Portal and [employer]rd [employer] Apps Indication:Anxiety Start: Instruction Type:Patient Education Patient Instructions Indication:Sore throat Start: 3 Instruction Type:Provider Instructions for Treatment Patient Instructions Indication:Need for prophylactic vaccination and inoculation against influenza Start: 3 Instruction Type:Provider Instructions for Treatment [facility]; [facility] Work Phone: Instructions Note Date & Type Note Facility Instructions Name Patient Instructions Indication:Anxiety Start: 1 Instruction Type:Provider Instructions for Treatment How to Access Health Information Online using Patient Portal and [employer] Apps Indication:Anxiety Start: 1 Instruction Type:Patient Education Patient Instructions Indication:Sore throat Start: 3 Instruction Type:Provider Instructions for Treatment Patient Instructions Indication:Need for prophylactic vaccination and inoculation against influenza Start: 3 Instruction Type:Provider Instructions for Treatment [facility]; [facility] Work Phone: Instructions Note Date & Type Note Facility Instructions Name Patient Instructions Indication:Anxiety Start: 1 Instruction Type:Provider Instructions for Treatment How to Access Health Information Online using Patient Portal and [employer] Apps Indication:Anxiety Start: 1 Instruction Type:Patient Education Patient Instructions Indication:Sore throat Start: 3 Instruction Type:Provider Instructions for Treatment Patient Instructions Indication:Need for prophylactic vaccination and inoculation against influenza Start: 3 Instruction Type:Provider Instructions for Treatment [facility]; [facility] Work Phone: Family History No Family History Records FoundUnknown Family Member Name Dates Details Family Members In General Comments:lung cancer htn hig h chol diabetes Status:Active First Degree Relatives Comments:[place], Cancer, Diabe jose l, Depression, heart/lung dx, HBP, high cholesterol Status:Active Unknown Family Member Name Dates Details Family Members In General Comments:lung cancer htn hig h chol diabetes Status:Active First Degree Relatives Comments:[place], Cancer, Diabe jose l, Depression, heart/lung dx, HBP, high cholesterol Status:Active Unknown Family Member Name Dates Details Family Members In General Comments:lung cancer htn hig h chol diabetes Status:Active First Degree Relatives Comments:[place], Cancer, Diabe jose l, Depression, heart/lung dx, HBP, high cholesterol Status:Active Unknown Family Member Name Dates Details Family Members In General Comments:lung cancer htn hig h chol diabetes Status:Active First Degree Relatives Comments:[place], Cancer, Diabe jose l, Depression, heart/lung dx, HBP, high cholesterol Status:Active Instructions Name Dates Details Sore throat : Patient Instru ctions Indication:Sore throat Need for prophylactic vaccin ation and inoculation against influenza : Patient Instructions Indication:Need for prophylactic vaccination and inoculation against influenza Summary Purpose Advance Directives No Advanced Directives Records FoundNo Advanced Directives Records FoundNo Advanced Directives Records Found Additional Source Comments INFORMATION SOURCE (unrecogn ized section and content) DATE CREATED AUTHOR 08/01/2019 [facility] DATE CREATED AUTHOR AUTHOR'S ORGANIZ ATION 07/16/2021 [facility] DATE CREATED AUTHOR AUTHOR'S ORGANIZ ATION 08/12/2022 [facility] FOR RECORDS PERTAINING TO PATIENTS WHO ARE OR HAVE BEEN ENROLLED IN A CHEMICAL DEPENDENCY/SUBSTANCEABUSE PROGRAM, SOME INFORMATION MAY BE OMITTED. This clinical summary was aggregated from multiple sources. Caution should be exercised in using it in the provision of clinical care. This summary normalizes information from multiple sources, and as a consequence, information in this document may materially change the coding, format and clinical context of patient data. In addition, data may be omitted in some cases. CLINICAL DECISIONS SHOULD BE BASED ON THE PRIMARY CLINICAL RECORDS. [email or web address] provides no warranty or guarantee of the accuracy or completeness of information in this document.
== END | disposition home or self-care (01) ==
LOC: CVS 10:52
PROVIDERS: PCP Internal Medicine; Referring Provider Internal Medicine; Visit Provider Internal Medicine
DX: M25.472 Effusion, left ankle (principal); M79.89 Other specified soft tissue disorders
CPT/HCPCS: 93971